=== PATIENT | male | born 1950 | race Caucasian/White ===

== ENCOUNTER 2024-04-17 11:47 | Outpatient (CLI) | payer MEDICARE, MEDICAID, SELFPAY ==
--- NOTE | 2024-04-17 11:53 | CT_ITS ---
WS: [id number] CTA HEAD AND NECK TECHNIQUE: Contrast enhanced CTA of the head and neck with coronal and sagittal reformatted images an d maximum intensity projection (MIP) images. NASCET criteria utilized. CLINICAL INFORMATION: CENTRAL RETINAL ARTERY OCCULLUSION COMPARISON: None. DLP: 1240.[address] scans at [facility] use at least one of these dose optimization techniques: automated e xposure control; mA and/or kV adjustment per patient size (includes targeted exams where dose is matc hed to clinical indication); or iterative reconstruction. 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 Moderate to sev ere stenosis in the LEFT P2 segment. Distal LEFT TROUBLE TRACER vessels appear patent. A few tiny chronic lacunar infarcts in the LEFT caudate and LEFT basal ganglia. Chronic infarct in th e LEFT parasagittal frontal lobe near the vertex. Associated encephalomalacia. Mild small vessel aguayo ges. Mild parenchymal volume loss. Paranasal sinuses and mastoid air cells are well aerated. Normal posterior nasopharynx. RIGHT: RIGHT common carotid artery is patent. Mild calcified atheromatous plaque RIGHT carotid bulb e xtending into the ICA. Less than 50% RIGHT ICA stenosis. RIGHT ICA is patent to the skull base. LEFT: LEFT common carotid artery is patent. Mild calcified atheromatous plaque LEFT carotid bulb. No significant LEFT ICA stenosis. LEFT ICA is patent to the skull base. Moderate to severe RIGHT supraclinoid ICA stenosis which remains patent. Moderate LEFT supraclinoid I CA stenosis. Moderate stenosis RIGHT proximal M1 segment which remains patent. RIGHT dominant vertebral artery. Smaller but patent LEFT vertebral artery. Proximal basilar artery is patent. Normal vascularity to the RIGHT bridge crane operator territory. Moderate to severe focal stenosis LEFT P2 seg ment. Distal LEFT TROUBLE TRACER vessels appear patent. Normal vascularity to the ELADIO and MCA territories bilaterally. CT/CT angio headneck* [id number] IMPRESSION: 1. No significant cervical ICA stenosis bilaterally. 2. 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 Moderate to severe stenosis in the LEFT P2 segment. Distal LEFT TROUBLE TRACER appears pa tent. 3. RIGHT dominant vertebral artery. Smaller but patent LEFT vertebral artery. Mild intracranial vertebral artery calcification. 4. Cavernous carotid calcification with moderate RIGHT and mild LEFT supraclin oid ICA stenosis 5. Moderate stenosis RIGHT proximal M1 segment. MCA vessels remain patent. 6. Basilar artery is patent.
[2024-04-17] MEDS: iohexol 350 mg/mL 500 mL Btl (per mL) IV (12:51)
[2024-04-17 13:00] LABS: Blood Urea Nitrogen 10 mg/dL (8-23)
== END 2024-04-17 11:48 | disposition home or self-care (01) ==
PROVIDERS: Visit Provider Student in an Organized Health Care Education/Training Program
DX: H34.11 Central retinal artery occlusion, right eye (principal); I63.532 Cerebral infarction due to unspecified occlusion or stenosis of left posterior cerebral artery; G93.89 Other specified disorders of brain; R93.89 Abnormal findings on diagnostic imaging of other specified body structures; I65.23 Occlusion and stenosis of bilateral carotid arteries
CPT/HCPCS: 70496; 70498; 82565; 84520

== ENCOUNTER 2024-06-01 14:37 | Inpatient (IN) | payer MEDICARE, MEDICAID, SELFPAY ==
[2024-06-01] VITALS (12 sets, daily range): BP systolic 91–112; BP diastolic 68–76; PULSE 82–96; RESP 15–20; TEMP 36.8–37.2; O2SAT 91–96; BMI 22.8
--- NOTE | 2024-06-01 14:49 | XRR_ITS ---
PROCEDURE INFORMATION: Exam: XR Chest Exam date and time: 06/01/2024 3:04 PM Age: 73 years old Clinical indication: Cough and dyspnea; Additional info: Dyspnea/cough TECHNIQUE: Imaging protocol: Radiologic exam of the chest. Views: 1 view. COMPARISON: CR XR chest 1V portable [id number] 01/29/2024 9:14 AM FINDINGS: Lungs: Unremarkable. No consolidation. Pleural spaces: Unremarkable. No pleural effusion. No pneumothorax. Heart/Mediastinum: Unremarkable. No cardiomegaly. Vasculature: There is unfolding of the thoracic aorta. Bones/joints: Demineralization of the visualized bones, limiting sensitivity for nondisplaced fractures. Mild degenerative disease of bilateral acromioclavicular joints. There are mild degenerative changes of the glenohumeral joint. XR/XR chest 1V portable [id number] IMPRESSION: No acute cardiopulmonary process.
--- NOTE | 2024-06-01 14:49 | ECG_ITS ---
Simio Test Date: 2024-06-01 Pat Name: Bk Jackson Department: Room: Gender: Male Scoreboard Operator: : 1950 Requested By: Willem Ayala Order Number: [id number] Katerina MD: Edwin Mariscal M.D. Measurements Intervals [place] Rate: 94 P: 115 [place]: 242 QRS: 258 QRSD: 155 T: 150 QT: 399 QTc: 499 Interpretive Statements SINUS RHYTHM WITH FIRST DEGREE AV BLOCK WITH OCCASIONAL SUPRAVENTRICULAR PREMATURE COMPLEXES ARM LEADS REVERSED Compared to ECG 01/27/2024 18:04:39 First degree AV block now present No significant change in terms of ST changes Electronically Signed On 06-02-2024 12:34:45 INSTRUCTIONAL TECHNOLOGY FACILITATOR by Edwin Mariscal M.D. [id number] [id number]
--- NOTE | 2024-06-01 14:51 | W.ED.NAVMDI ---
HPI - Nausea/Vomiting/Diarrhea General: Chief complaint: Nausea/Vomiting/Diarrhea Stated complaint: n/v Time Seen by Provider: 06/01/24 14:49 History of Present Illness: 73-year-old male presents emergency room with nausea and vomiting coffee-ground emesis Associated nausea: No Associated symtoms: Denies chest pain, dysuria or nausea Related Data Home Medications ?Medication ?Instructions ?Recorded ?Confirmed Lactobacillus acidophilus 1 cap PO BID 01/29/24 06/01/24 (Acidophilus capsule) acetaminophen 325 mg tablet 650 mg PO Q4H PRN discomfort 01/29/24 06/01/24 aspirin 81 mg tablet,delayed 81 mg PO DAILY 01/29/24 06/01/24 release bisacodyl 10 mg rectal suppository 10 mg AR DAILY 01/29/24 06/01/24 calcium carbonate (Tums) 200 mg PO Q6H 01/29/24 06/01/24 clopidogrel 75 mg tablet 75 mg PO DAILY 01/29/24 06/01/24 insulin glargine 100 unit/mL 15 unit SUBCUT DAILY 01/29/24 06/01/24 subcutaneous solution (Lantus U-100 Insulin) insulin lispro 100 unit/mL See Rx Instructions .Route .COMPLEX 01/29/24 06/01/24 subcutaneous pen (Humalog KwikPen (U-100) Insulin) magnesium hydroxide 400 mg/5 mL 30 ml PO BID PRN discomfort 01/29/24 06/01/24 oral suspension (Milk of Magnesia) menthol 0.44 %-zinc oxide 20.6 % 1 applic topical BID 01/29/24 06/01/24 topical ointment (Moisture Barrier Ointment) multivitamin 1 tab PO DAILY 01/29/24 06/01/24 ondansetron 4 mg disintegrating 4 mg PO Q8H PRN Nausea And Vomiting 01/29/24 06/01/24 tablet pantoprazole 40 mg tablet,delayed 40 mg PO BID 01/29/24 06/01/24 release protein supplement 30 ea PO DAILY 01/29/24 06/01/24 aluminum-mag hydroxide-simethicone 30 ml PO Q2H PRN Constipation 06/01/24 06/01/24 400 mg-400 mg-40 mg/5 mL oral susp atropine 1 % eye drops 1 drp ophthalmic (eye) BID 06/01/24 06/01/24 bisacodyl 5 mg tablet 20 mg PO DAILY 06/01/24 06/01/24 brimonidine 0.2 % eye drops 1 drp ophthalmic (eye) BID 06/01/24 06/01/24 guaifenesin 100 mg/5 mL oral liquid 200 mg PO Q6H PRN Cough 06/01/24 06/01/24 ketotifen fumarate 0.025 % (0.035 1 drp ophthalmic (eye) DAILY 06/01/24 06/01/24 %) eye drops (Allergy Eye (ketotifen)) loratadine 10 mg tablet (Claritin) 10 mg PO Q12H 06/01/24 06/01/24 polyethylene glycol 3350 17 4 g PO DAILY 06/01/24 06/01/24 gram/dose oral powder polyvinyl alcohol 1.4 % eye drops 2 drp ophthalmic (eye) Q6H 06/01/24 06/01/24 prednisolone acetate 1 % eye 1 drp ophthalmic (eye) BID 06/01/24 06/01/24 drops,suspension Previous Rx's ?Medication ?Instructions ?Recorded tamsulosin 0.4 mg capsule 0.4 mg PO DAILY #30 caps 02/01/24 amoxicillin 875 mg-potassium 1 tab PO BID 5 days #10 tabs 06/05/24 clavulanate 125 mg tablet atorvastatin 40 mg tablet 40 mg PO BEDTIME 30 days #30 tabs 06/05/24 Allergies Allergy/AdvReac Type Severity Reaction Status Date / Time No Known Allergies Allergy Verified 01/27/24 18:12 Review of Systems Const: Denies: fever(s) or chills Card: Denies: chest pain Resp: Denies: dyspnea GI: Reports: vomiting; Denies: abdominal pain or nausea : Denies: dysuria, urinary frequency or urinary urgency Musc: Denies: neck pain or back pain Skin/Breast: Denies: rash PFSH ED PFSH: Medical History (Updated 06/06/24 @ 17:59 by Willem Randhawa DO) Pressure ulcer of right ankle, stage 2 Non-pressure chronic ulcer of other part of left foot with fat layer exposed Type 2 diabetes mellitus with foot ulcer Upper gastrointestinal hemorrhage Anemia Overactive bladder Hypertension Coronary artery disease Paroxysmal atrial fibrillation Esophageal bleeding Type 2 diabetes mellitus Alzheimer's dementia Surgical History (Updated 06/04/24 @ 16:07 by RADHA Dutton) S/P coronary angiogram History of transmetatarsal amputation of foot Family History Denies family history of Bleeding disorder Social History Smoking and tobacco/nicotine status: never used tobacco/nicotine Alcohol intake: never Substance/Drug Use: never Physical Exam Const: GENERAL APPEARANCE: cooperative ORIENTATION/CONSCIOUSNESS: Yes awake, Yes oriented to person, Yes oriented to place and Yes oriented to time HENMT: COMMON NORMALS: normocephalic, atraumatic and hearing grossly normal bilaterally HEAD & SCALP: normocephalic and atraumatic Resp: COMMON NORMALS: normal respiratory effort, No retractions, No use of accessory muscles and clear to auscultation bilaterally AUSCULTATION: clear to auscultation bilaterally Cardio: COMMON NORMALS: regular rate, regular rhythm and No murmurs present (Cardio) RATE: regular rate RHYTHM: regular rhythm GI: COMMON NORMALS: Soft to palpation and No hepatosplenomegaly present AUSCULTATION: Yes normoactive bowel sounds PALPATION: Yes Soft to palpation, No Tenderness to palpation present (GI), No Guarding due to palpation present (GI) and Yes No hepatosplenomegaly present Extremity: COMMON NORMALS: normal to inspection, capillary refill normal, no clubbing, cyanosis or edema, no calf tenderness and no pedal edema Neuro: SENSORIUM/ORIENTATION: Yes oriented to person, Yes oriented to place and Yes oriented to time Skin: COMMON NORMALS: no rashes or lesions noted GENERAL SKIN EXAM: no rashes or lesions noted Course Vital Signs: Vital signs: Vital Signs Temperature 98.1 F 06/05/24 11:35 Pulse Rate 96 06/05/24 11:35 Respiratory Rate 21 H 06/05/24 11:35 Blood Pressure 108/65 06/05/24 11:35 Pulse Oximetry 93 06/05/24 11:35 Oxygen Delivery Me thod Room Air 06/05/24 11:35 Oxygen Flow Rate 2 06/05/24 02:57 MDM - Nausea/Vomiting/Diarrhea Medical Decision Making Upper GI bleed. Patient CPK also elevated. We added troponins and it came back elevated his EKG did not show any acute changes he is not had any chest pain discussed with hospitalist orders written will consult cardiology. Had been on Eliquis in the past. Due to upper GI bleed he previous GI bleed records are being retrieved. Medical Records I reviewed the patient's medical records. Lab Data I reviewed the patient's lab results. 06/04/24 02:49 06/04/24 02:49 Radiology Impressions Chest X-Ray 06/01/24 14:49 IMPRESSION: No acute cardiopulmonary process. Chest/Abdomen/Pelvis CT 06/02/24 11:13 IMPRESSION: Findings which likely represent CHF/pulmonary edema. Superimposed infection is difficult to exclude. IMPRESSION: 1. Findings which can be seen in stercoral colitis. Correlate clinically. Difficult to exclude gastrointestinal bleed with the noncontrasted examination. 2. Hydropic gallbladder, consider right upper quadrant ultrasound for further assessment. 3. Findings of which can be seen in cystitis/upper urinary tract infection, correlate clinically. 4. Prominent left common iliac lymph nodes, correlate with left lower extremity pathology. Gallbladder Ultrasound 06/02/24 12:50 IMPRESSION: No acute sonographic findings. Laboratory Results WBC 17.08 10^3/uL (3.29-11.43) H 06/01/24 15:08 RBC 4.53 10^6/uL (3.85-5.65) 06/01/24 15:08 Hgb 10.90 g/dL (11.27-16.99) L 06/01/24 15:08 Hct 36.1 % (37-53) L 06/01/24 15:08 MCV 79.7 fl (82-101) L 06/01/24 15:08 MCH 24.1 pg (27-33) L 06/01/24 15:08 MCHC 30.2 g/dL (30-55) 06/01/24 15:08 RDW 17.0 % (12.1-15.1) H 06/01/24 15:08 Plt Count 253 10^3/cmm (157-399) 06/01/24 15:08 MPV 11.2 fL (7.4-10.4) H 06/01/24 15:08 Neut % (Auto) 87.0 % 06/01/24 15:08 Lymph % (Auto) 7.5 % 06/01/24 15:08 [place] % (Auto) 4.9 % 06/01/24 15:08 Eos % (Auto) 0.0 % 06/01/24 15:08 Baso % (Auto) 0.2 % 06/01/24 15:08 Neut # (Auto) 14.87 10^3/uL (1.8-7.7) H 06/01/24 15:08 Lymph # (Auto) 1.3 10^3/uL (0.8-4.8) 06/01/24 15:08 [place] # (Auto) 0.8 10^3/uL (0.2-0.9) 06/01/24 15:08 Eos # (Auto) 0.0 10^3/uL (0.0-0.8) 06/01/24 15:08 Baso # (Auto) 0.0 10^3/uL (0.0-0.1) 06/01/24 15:08 Nucleated RBC % (auto) 0 % 06/01/24 15:08 Nucleated RBCs # 0.0 /100WBC 06/01/24 15:08 Sodium 136 mmol/L (136-145) 06/01/24 15:08 Potassium 3.5 mmol/L (3.5-5.1) 06/01/24 15:08 Chloride 102 mmol/L (98-107) 06/01/24 15:08 Carbon Dioxide 22 mmol/L (22-29) 06/01/24 15:08 Anion Gap 15.5 (5-19) 06/01/24 15:08 BUN 26 mg/dL (8-23) H 06/01/24 15:08 Creatinine 0.7 mg/dL (0.7-1.2) 06/01/24 15:08 GFR Calculation Not Reportable 06/01/24 15:08 Glucose 241 mg/dL (65-115) H 06/01/24 15:08 Calculated Osmolality 295 mOsm/kg (285-295) 06/01/24 15:08 Lactic Acid Cancelled 06/01/24 16:00 Calcium 9.0 mg/dL (8.5-10.5) 06/01/24 15:08 Total Bilirubin 0.4 mg/dL (0.15-1.2) 06/01/24 15:08 AST 104 U/L (0-40) H 06/01/24 15:08 ALT 19 U/L (0-41) 06/01/24 15:08 Alkaline Phosphatase 95 U/L (40-130) 06/01/24 15:08 Creatine Kinase 1398 U/L (39-308) H* 06/01/24 15:08 Troponin T Baseline 910 ng/L (0-15) H* 06/01/24 15:08 NT-Pro-B Natriuret Pep 6869 pg/mL (0-125) H 06/01/24 15:08 Total Protein 7.4 g/dL (6.6-8.7) 06/01/24 15:08 Albumin 3.5 g/dL (3.5-5.2) 06/01/24 15:08 Globulin 3.9 g/dL (1.3-4.6) 06/01/24 15:08 Lipase 7 U/L (13-60) L 06/01/24 15:08 Urine Color Dark yellow (Yellow) A 06/01/24 15: Urine Appearance Clear (CLEAR) 06/01/24 15: Urine pH 5.0 (5-7) 06/01/24 15: Ur Specific [place] 1.022 (1.005-1.030) 06/01/24 15: Urine Protein 1+ (Negative) A 06/01/24 15:29 Urine Glucose (UA) 1+ (Normal) H 06/01/24 15:29 Urine Ketones Trace (Negative) 06/01/24 15: Urine Blood Negative (Negative) 06/01/24 15: Urine Nitrate Negative (Negative) 06/01/24 15:29 Urine Bilirubin 1+ (Negative) H 06/01/24 15: Urine Urobilinogen 1.0 mg/dL (Negative) 06/01/24 15:29 Ur Leukocyte Esterase Negative (Negative) 06/01/24 15:29 Urine RBC 0-4 /hpf (0-2) H 06/01/24 15:29 Urine WBC 0-4 /hpf (0-5) H 06/01/24 15:29 Ur Squamous Epith Cells 0-4 /hpf (0-5) H 06/01/24 15:29 Amorphous Sediment Not Reportable 06/01/24 15:29 Urine Bacteria 1+ /hpf (NONE) H 06/01/24 15:29 Hyaline Casts 15-25 /lpf H 06/01/24 15:29 Urine Mucus 1+ /hpf 06/01/24 15:29 Influenza A (PCR) Negative (Negative) 06/01/24 15:45 Influenza Type B (PCR) Negative (Negative) 06/01/24 15:45 RSV (PCR) Negative (Negative) 06/01/24 15:45 SARS-CoV-2 (PCR) Negative (Negative) 06/01/24 15:45 All radiology interpretation(s) finalized by discharge Discharge Plan Discharge Patient Disposition: Admitted As Inpatient Admit Provider: Melissa Park Clinical Impression: GIB (gastrointestinal bleeding), Alzheimer's dementia, Anemia, Constipation, Paroxysmal atrial fibrillation, Coronary artery disease Condition: Stable Discharge Diet: GI Soft Discharge Activity: Resume usual activity Coding Level of Care Code ED Podiatrist Orthopedic for Sb Saldana
[2024-06-01 15:17] LABS: Basophils % 0.2 %; Hematocrit 36.1 % (37-53); Lymphocytes # 1.3 10^3/uL (0.8-4.8); Lymphocytes % 7.5 %; Mean Corpuscular HGB Conc 30.2 g/dL (30-55); Mean Corpuscular Hemoglobin 24.1 pg (27-33); Mean Corpuscular Volume 79.7 fl (82-101); Mean Platelet Volume 11.2 fL (7.4-10.4); Monocytes # 0.8 10^3/uL (0.2-0.9); Monocytes % 4.9 %; Neutrophils # 14.87 10^3/uL (1.8-7.7); Nucleated Red Blood Cells % 0 %; Platelet Count 253 10^3/cmm (157-399); Red Blood Count 4.53 10^6/uL (3.85-5.65); White Blood Count 17.08 10^3/uL (3.29-11.43)
[2024-06-01] MEDS: ondansetron 2 mg/ML SDV 2 mL 4 MG IVP (15:26)
[2024-06-01 15:29] LABS: Alanine Aminotransferase 19 U/L (0-41); Albumin Level 3.5 g/dL (3.5-5.2); Alkaline Phosphatase 95 U/L (40-130); Anion Gap 15.5 (5-19); Aspartate Amino Transferase 104 U/L (0-40); Blood Urea Nitrogen 26 mg/dL (8-23); Carbon Dioxide 22 mmol/L (22-29); Chloride 102 mmol/L (98-107); Globulin 3.9 g/dL (1.3-4.6); Glucose 241 mg/dL (65-115); Osmolality Calculated 295 mOsm/kg (285-295); Potassium 3.5 mmol/L (3.5-5.1); Sodium 136 mmol/L (136-145); Total Bilirubin 0.4 mg/dL (0.15-1.2); Total Protein 7.4 g/dL (6.6-8.7)
[2024-06-01 15:36] LABS: Bilirubin Urine 1+ (Negative); Blood Urine Negative (Negative); Glucose Urine UA 1+ (Normal); Ketones Urine Trace (Negative); Leukocyte Esterase Urine Negative (Negative); Nitrate Urine Negative (Negative); Protein Urine 1+ (Negative); Specific Gravity, Urine 1.022 (1.005-1.030); Urine Appearance Clear (CLEAR); Urine Color Dark Yellow (Yellow)
[2024-06-01 15:45] LABS: Add Urine Microscopic? YES; Bacteria Urine 1+ /hpf; Hyaline Casts Urine 15-25 /lpf; Mucus Urine 1+ /hpf; RBC Urine 0-4 /hpf (0-2); Squamous Epithelial Cell Urine 0-4 /hpf (0-5); WBC Urine 0-4 /hpf (0-5)
[2024-06-01 15:59] LABS: Creatine Phosphokinase 1398 U/L (39-308)
--- NOTE | 2024-06-01 16:55 | ECG_ITS ---
Vator Test Date: 2024-06-01 Pat Name: Bk Jackson Department: Room: Gender: Male Supervisor Electron Tube Processing: : 1950 Requested By: Willem Ayala Order Number: [id number] Katerina MD: Edwin Mariscal M.D. Measurements Intervals [place] Rate: 91 P: 82 [place]: 184 QRS: -84 QRSD: 151 T: 65 QT: 410 QTc: 506 Interpretive Statements SINUS RHYTHM RIGHT BUNDLE BRANCH BLOCK INFERIOR MYOCARDIAL INFARCTION , PROBABLY OLD ANTEROSEPTAL MYOCARDIAL INFARCTION , PROBABLY RECENT Compared to ECG 06/01/2024 15:07:25 Myocardial infarct finding now present Electronically Signed On 06-02-2024 12:16:18 EMERGENCY ROOM NURSE by Edwin Mariscal M.D. [email or web address] [id number]
[2024-06-01 16:56] LABS: Influenza A NEGATIVE (Negative); Influenza B NEGATIVE (Negative); Respiratory Syncytial Virus Ce NEGATIVE (Negative); SARS-CoV-2 PCR NEGATIVE (Negative)
[2024-06-01 17:21] LABS: Lipase 7 U/L (13-60)
[2024-06-01 17:23] LABS: Troponin(5th) Baseline 910 ng/L (0-15)
[2024-06-01] MEDS: pantoprazole 40 mg SDV 80 MG IVP (17:33)
[2024-06-01 18:18] LABS: Lactic Sepsis W/Reflex 2.1 mmol/L (0.5-2.2)
[2024-06-01 18:19] LABS: Reflex Lactate Order REFLEX LACTIC ORDERD
[2024-06-01 18:42] LABS: Basophils % 0.3 %; Eosinophils % 0.3 %; Hematocrit 32.5 % (37-53); Lymphocytes # 1.7 10^3/uL (0.8-4.8); Lymphocytes % 11.2 %; Mean Corpuscular HGB Conc 30.8 g/dL (30-55); Mean Corpuscular Hemoglobin 24.6 pg (27-33); Mean Corpuscular Volume 79.9 fl (82-101); Monocytes # 0.9 10^3/uL (0.2-0.9); Monocytes % 5.7 %; Neutrophils # 12.45 10^3/uL (1.8-7.7); Neutrophils % 82.2 %; Nucleated Red Blood Cells % 0 %; Platelet Count 240 10^3/cmm (157-399); Red Blood Count 4.07 10^6/uL (3.85-5.65); White Blood Count 15.12 10^3/uL (3.29-11.43)
[2024-06-01 18:59] LABS: Lactic Acid level (Lactate) 1.4 mmol/L (0.5-2.2)
[2024-06-01 19:12] LABS: NT Pro B Type Natriuretic Pept 6869 pg/mL (0-125)
--- NOTE | 2024-06-01 19:48 | ECG_ITS ---
Kodable Test Date: 2024-06-01 Pat Name: Bk Jackson Department: Room: 112 Gender: Male Port Engineer: : 1950 Requested By: Melissa Park Order Number: [id number] Borges MD: Edwin Mariscal M.D. Measurements Intervals [place] Rate: 90 P: 50 [place]: 200 QRS: 267 QRSD: 158 T: 28 QT: 420 QTc: 515 Interpretive Statements SINUS RHYTHM WITH OCCASIONAL ECTOPIC PREMATURE COMPLEXES RIGHT AXIS DEVIATION RIGHT BUNDLE BRANCH BLOCK INFERIOR MYOCARDIAL INFARCTION , PROBABLY OLD ANTEROSEPTAL MYOCARDIAL INFARCTION , PROBABLY RECENT Compared to ECG 06/01/2024 17:08:04 No significant change Electronically Signed On 06-02-2024 12:44:25 FACE CLEANER by Edwin Mariscal M.D. [id number] [id number]
--- NOTE | 2024-06-01 19:59 | PM.HP ---
Providers/Chief Complaint Admitting Physician: Melissa Park MD Chief Complaint: n/v History of Present Illness Bk Jackson is a 73 year old male significant for Alzheimer's disease, coronary artery disease, hypertension, paroxysmal atrial fibrillation (off eliquis) , anemia, GI bleed, overactive bladder, and type 2 diabetes mellitus who presents to the emergency department from nursing facility with hematemesis Patient at baseline is AOx4, active, [facility] a walker [facility] the [facility], has been taking his aspirin and Plavix consistently, recently had eye surgery, presented today with chief complaint of couple episode of blood in vomiting, he is not endorsing any chest pain shortness of breath fever diarrhea syncopal event or seizure. EKG showing nonspecific changes related to right bundle branch block, troponin 900 CPK is also high at 1398 Review of records revealed patient was treated for GI bleed at [facility] as well. Records obtained showed EGD on 01/19/24 revealing large blood clot in the esophagus with active oozing of blood from the mid to distal esophagus at 28 cm from incisors treated with 3 mL epinephrine injection and hemostatic clip Review of Systems Const: Denies: fever(s) Eyes: Denies: change in vision ENMT: Denies: throat pain Card: Denies: chest pain Resp: Denies: dyspnea GI: Reports: nausea and vomiting : Denies: flank pain Musc: Denies: neck pain Medications/Allergies Home Medications ?Medication ?Instructions ?Recorded ?Confirmed ?Last Taken ?Type Lactobacillus acidophilus 1 cap PO BID 01/29/24 06/01/24 Unknown History (Acidophilus capsule) acetaminophen 325 mg tablet 650 mg PO Q4H PRN discomfort 01/29/24 06/01/24 Unknown History aspirin 81 mg tablet,delayed 81 mg PO DAILY 01/29/24 06/01/24 Unknown History release bisacodyl 10 mg rectal suppository 10 mg OK DAILY 01/29/24 06/01/24 Unknown History calcium carbonate (Tums) 200 mg PO Q6H 01/29/24 06/01/24 Unknown History clopidogrel 75 mg tablet 75 mg PO DAILY 01/29/24 06/01/24 Unknown History insulin glargine 100 unit/mL 15 unit SUBCUT DAILY 01/29/24 06/01/24 Unknown History subcutaneous solution (Lantus U-100 Insulin) insulin lispro 100 unit/mL See Rx Instructions .Route .COMPLEX 01/29/24 06/01/24 Unknown History subcutaneous pen (Humalog KwikPen (U-100) Insulin) magnesium hydroxide 400 mg/5 mL 30 ml PO BID PRN discomfort 01/29/24 06/01/24 Unknown History oral suspension (Milk of Magnesia) menthol 0.44 %-zinc oxide 20.6 % 1 applic topical BID 01/29/24 06/01/24 Unknown History topical ointment (Moisture Barrier Ointment) multivitamin 1 tab PO DAILY 01/29/24 06/01/24 Unknown History ondansetron 4 mg disintegrating 4 mg PO Q8H PRN Nausea And Vomiting 01/29/24 06/01/24 Unknown History tablet pantoprazole 40 mg tablet,delayed 40 mg PO BID 01/29/24 06/01/24 Unknown History release protein supplement 30 ea PO DAILY 01/29/24 06/01/24 Unknown History tamsulosin 0.4 mg capsule 0.4 mg PO DAILY #30 caps 02/01/24 06/01/24 Unknown Rx aluminum-mag hydroxide-simethicone 30 ml PO Q2H PRN Constipation 06/01/24 06/01/24 Unknown History 400 mg-400 mg-40 mg/5 mL oral susp atropine 1 % eye drops 1 drp ophthalmic (eye) BID 06/01/24 06/01/24 Unknown History bisacodyl 5 mg tablet 20 mg PO DAILY 06/01/24 06/01/24 Unknown History brimonidine 0.2 % eye drops 1 drp ophthalmic (eye) BID 06/01/24 06/01/24 Unknown History guaifenesin 100 mg/5 mL oral liquid 200 mg PO Q6H PRN Cough 06/01/24 06/01/24 Unknown History ketotifen fumarate 0.025 % (0.035 1 drp ophthalmic (eye) DAILY 06/01/24 06/01/24 Unknown History %) eye drops (Allergy Eye (ketotifen)) loratadine 10 mg tablet (Claritin) 10 mg PO Q12H 06/01/24 06/01/24 Unknown History polyethylene glycol 3350 17 4 g PO DAILY 06/01/24 06/01/24 Unknown History gram/dose oral powder polyvinyl alcohol 1.4 % eye drops 2 drp ophthalmic (eye) Q6H 06/01/24 06/01/24 Unknown History prednisolone acetate 1 % eye 1 drp ophthalmic (eye) BID 06/01/24 06/01/24 Unknown History drops,suspension Allergies Allergy/AdvReac Type Severity Reaction Status Date / Time No Known Allergies Allergy Verified 01/27/24 18:12 PFSH Acute PFSH: Medical History Upper gastrointestinal hemorrhage Anemia Overactive bladder Hypertension Coronary artery disease Paroxysmal atrial fibrillation Esophageal bleeding Type 2 diabetes mellitus Alzheimer's dementia Surgical History History of transmetatarsal amputation of foot Family History Denies family history of Bleeding disorder Social History Smoking and tobacco/nicotine status: never used tobacco/nicotine Alcohol intake: never Substance/Drug Use: never Vitals/I&O/Wt Last Vital Signs Temp 98.9 F 06/01/24 19:48 Pulse 93 06/01/24 19:48 Resp 16 06/01/24 19:48 BP 100/69 06/01/24 19:27 Pulse Ox 91 06/01/24 19:48 O2 Del Method Room Air 06/01/24 19:48 Weight last 48 hrs Weight 86.183 kg Physical Exam Narrative: No active chest pain Currently in supine Pale complexion no Acute distress Hemodynamic stable Currently on room air AOx4 GCS 15 no active focal deficit S1, S2 Lower extremity mild edema Lower extremity with bruises left leg erythema without signs of septic joint Patient able to follow commands Very pleasant cooperative Data 06/01/24 20:12 06/01/24 15:08 Micro: Microbiology 06/01/24 16:10 Occult Blood (FIT) - Final Stool 06/01/24 16:12 Blood Culture - Preliminary Blood SPECIMEN COLLECTED 06/01/24 16:10 Blood Culture - Preliminary Blood SPECIMEN COLLECTED A&P Assessment and plan (1) Anemia: (2) Alzheimer's dementia: (3) Type 2 diabetes mellitus: (4) Paroxysmal atrial fibrillation: (5) Coronary artery disease: (6) Hypertension: (7) Elevated troponin: Plan Hematemesis Recurrent episodes Stop aspirin and Plavix No active signs of OK on EKG No active chest pain Will call to neurosurgery for EGD in the morning However previous EGD was done rather recently Continue Protonix Patient to stay n.p.o. Start IV fluids D5 normal saline because he is diabetic Patient hemodynamically stable Elevated troponin: Monitor troponin serial EKGs no active chest pain, Hold off on aspirin Plavix or heparin for now secondary to recurrent episode of hematemesis ER has consulted cardiology: however at this point stabilization of GI bleed will take precedence and then if any intervention is needed we will follow-up with cardiology recommendations Alzheimer's dementia: No acute decompensation AOx4 Type II diabetic: Accu-Cheks every 4 hours during n.p.o. status Currently on D5 normal saline Elevated CPK: Continue IV fluids Monitor CPK Recently had eye surgery Patient not endorsing any recent falls A-fib without RVR Not a candidate to be on Eliquis Eliquis has been discontinued DNR/DNI as per the records N.p.o. DVT prophylaxis: SCDs PDMP PDMP Reviewed: Not Reviewed Attestations Medical Necessity Statement*: Anticipating more than 2 midnights for evaluation and treatment of upper GI bleed and then may need further cardiology evaluation Diagnoses Anemia D64.9 Alzheimer's dementia G30.9; F02.80 Type 2 diabetes mellitus E11.9 Paroxysmal atrial fibrillation I48.0 Coronary artery disease I25.10 Hypertension I10 Elevated troponin R79.89
[2024-06-01 20:20] LABS: Glucose Point of Care 211 mg/dL (70-110)
[2024-06-01 20:24] LABS: Hematocrit 33.9 % (37-53)
[2024-06-01] MEDS: dextrose 5%-sod chloride 0.9% 1,000 ML 30 ML IV (20:41)
[2024-06-01] MEDS: pantoprazole 40 mg SDV IVP (20:45)
[2024-06-01 20:48] LABS: Troponin 5 6HR 1155 ng/L (0-15); Troponin 5 6HR Delta 245 ng/L (0-12)
[2024-06-01 20:50] LABS: Procalcitonin 1.17 ng/mL (0-0.5)
[2024-06-01 23:09] LABS: Hematocrit 30.7 % (37-53)
[2024-06-02] VITALS (21 sets, daily range): BP systolic 88–155; BP diastolic 55–75; PULSE 76–96; RESP 16–28; TEMP 36.4–37.1; O2SAT 90–99; BMI 23.7
[2024-06-02 00:13] LABS: Glucose Point of Care 193 mg/dL (70-110)
--- NOTE | 2024-06-02 01:56 | ECG_ITS ---
Purple Binder Test Date: 2024-06-02 Pat Name: Bk Jackson Department: Room: 112 Gender: Male Automobile Sales Consultant: : 1950 Requested By: Melissa Park Order Number: [id number] Borges MD: Edwin Mariscal M.D. Measurements Intervals [place] Rate: 88 P: 70 [place]: 204 QRS: -87 QRSD: 157 T: 30 QT: 426 QTc: 516 Interpretive Statements SINUS RHYTHM WITH OCCASIONAL VENTRICULAR PREMATURE COMPLEXES RIGHT BUNDLE BRANCH BLOCK [ INFERIOR MYOCARDIAL INFARCTION , PROBABLY OLD ANTEROSEPTAL MYOCARDIAL INFARCTION , PROBABLY RECENT Compared to ECG 06/01/2024 20:46:51 No significant change Electronically Signed On 06-02-2024 12:42:49 SCIENCE CONSULTANT by Edwin Mariscal M.D. [id number]
[2024-06-02 06:22] LABS: Glucose Point of Care 194 mg/dL (70-110)
[2024-06-02 06:54] LABS: Basophils % 0.3 %; Eosinophils % 0.1 %; Hematocrit 38.1 % (37-53); Lymphocytes # 1.3 10^3/uL (0.8-4.8); Mean Corpuscular HGB Conc 30.2 g/dL (30-55); Mean Corpuscular Volume 82.8 fl (82-101); Mean Platelet Volume 11.4 fL (7.4-10.4); Monocytes # 0.8 10^3/uL (0.2-0.9); Monocytes % 5.9 %; Neutrophils % 84.3 %; Nucleated Red Blood Cells % 0 %; Platelet Count 209 10^3/cmm (157-399); Red Cell Distribution Width 17.3 % (12.1-15.1); White Blood Count 13.99 10^3/uL (3.29-11.43)
[2024-06-02 07:16] LABS: Anion Gap 14.6 (5-19); Blood Urea Nitrogen 22 mg/dL (8-23); Calcium 8.6 mg/dL (8.5-10.5); Carbon Dioxide 22 mmol/L (22-29); Chloride 102 mmol/L (98-107); Glucose 207 mg/dL (65-115); Magnesium 1.8 mg/dL (1.7-2.3); Osmolality Calculated 289 mOsm/kg (285-295); Potassium 3.6 mmol/L (3.5-5.1); Sodium 135 mmol/L (136-145)
[2024-06-02 07:18] LABS: Creatinine Clr Calc Pharmacy 85.8233
[2024-06-02 07:54] LABS: Creatine Phosphokinase 1027 U/L (39-308)
[2024-06-02] MEDS: pantoprazole 40 mg SDV IVP ×2 (08:36→20:40)
--- NOTE | 2024-06-02 09:24 | ANES.PREANE2 ---
Pre-Anesthetic Assessment Height/Weight: Height 5 ft 10 in Weight 165 lb 4 oz Temp Pulse Resp BP Pulse Ox O2 Del Method O2 Flow Rate 97.9 F 86 22 H 115/75 96 Nasal Cannula 2 06/02/24 07:10 06/02/24 07:10 06/02/24 07:10 06/02/24 07:10 06/02/24 07:10 06/02/24 07:10 06/02/24 03:41 Preop Diagnosis: Hematic emesis Operation Date: 06/02/24 11:15 Proposed Procedures p EGD(Not Applicable) - Jay Horn MD Was Beta Gayatri taken within 24 hours: N/A Was Clonidine taken within 24 hours: N/A Social Unknown, patient is confused at this time Exam alert Oriented to self On 3 L O2. Airway Submandibular: within normal limits Cervical ROM: within normal limits Mallampati: Class III Comments: Comments: Edentulous Anesthetic Plan ASA status: 4E Anesthesia: MAC Other: Patient initially admitted 06/01/2024 with hematic emesis. Concern for active NSTEMI, troponins elevated. CPK has trended down since yesterday Spoke with patient's daughter Della on the phone No prior issues with anesthesia NPO since yesterday evening History of insulin-dependent DM On 3 L O2 currently CAD history Hypertension Paroxysmal A-fib. Patient needs anticoagulation but is not a good candidate until hemataemesis is controlled. EKG showing RBBB and concerns for TN Spoke with Dr. Mariscal, cardiology, on the phone. He confirms patient did have an TN. Echo this morning showing EF 40-45%. He states that patient is not a candidate for any anticoagulation or cardiac procedure at this time due to the hematic emesis. Patient is high risk for a cardiac event IntraOp. Spoke with patient's daughter about this. She is aware of the risks and would like to proceed at this time. She states she was also unaware that he was a DNR/DNI. She is okay with foregoing this during the perioperative period. Plan for MAC anesthetic Medications/Allergies Home Medications ?Medication ?Instructions ?Recorded ?Confirmed ?Last Taken ?Type Lactobacillus acidophilus 1 cap PO BID 01/29/24 06/01/24 Unknown History (Acidophilus capsule) acetaminophen 325 mg tablet 650 mg PO Q4H PRN discomfort 01/29/24 06/01/24 Unknown History aspirin 81 mg tablet,delayed 81 mg PO DAILY 01/29/24 06/01/24 Unknown History release bisacodyl 10 mg rectal suppository 10 mg DC DAILY 01/29/24 06/01/24 Unknown History calcium carbonate (Tums) 200 mg PO Q6H 01/29/24 06/01/24 Unknown History clopidogrel 75 mg tablet 75 mg PO DAILY 01/29/24 06/01/24 Unknown History insulin glargine 100 unit/mL 15 unit SUBCUT DAILY 01/29/24 06/01/24 Unknown History subcutaneous solution (Lantus U-100 Insulin) insulin lispro 100 unit/mL See Rx Instructions .Route .COMPLEX 01/29/24 06/01/24 Unknown History subcutaneous pen (Humalog KwikPen (U-100) Insulin) magnesium hydroxide 400 mg/5 mL 30 ml PO BID PRN discomfort 01/29/24 06/01/24 Unknown History oral suspension (Milk of Magnesia) menthol 0.44 %-zinc oxide 20.6 % 1 applic topical BID 01/29/24 06/01/24 Unknown History topical ointment (Moisture Barrier Ointment) multivitamin 1 tab PO DAILY 01/29/24 06/01/24 Unknown History ondansetron 4 mg disintegrating 4 mg PO Q8H PRN Nausea And Vomiting 01/29/24 06/01/24 Unknown History tablet pantoprazole 40 mg tablet,delayed 40 mg PO BID 01/29/24 06/01/24 Unknown History release protein supplement 30 ea PO DAILY 01/29/24 06/01/24 Unknown History tamsulosin 0.4 mg capsule 0.4 mg PO DAILY #30 caps 02/01/24 06/01/24 Unknown Rx aluminum-mag hydroxide-simethicone 30 ml PO Q2H PRN Constipation 06/01/24 06/01/24 Unknown History 400 mg-400 mg-40 mg/5 mL oral susp atropine 1 % eye drops 1 drp ophthalmic (eye) BID 06/01/24 06/01/24 Unknown History bisacodyl 5 mg tablet 20 mg PO DAILY 06/01/24 06/01/24 Unknown History brimonidine 0.2 % eye drops 1 drp ophthalmic (eye) BID 06/01/24 06/01/24 Unknown History guaifenesin 100 mg/5 mL oral liquid 200 mg PO Q6H PRN Cough 06/01/24 06/01/24 Unknown History ketotifen fumarate 0.025 % (0.035 1 drp ophthalmic (eye) DAILY 06/01/24 06/01/24 Unknown History %) eye drops (Allergy Eye (ketotifen)) loratadine 10 mg tablet (Claritin) 10 mg PO Q12H 06/01/24 06/01/24 Unknown History polyethylene glycol 3350 17 4 g PO DAILY 06/01/24 06/01/24 Unknown History gram/dose oral powder polyvinyl alcohol 1.4 % eye drops 2 drp ophthalmic (eye) Q6H 06/01/24 06/01/24 Unknown History prednisolone acetate 1 % eye 1 drp ophthalmic (eye) BID 06/01/24 06/01/24 Unknown History drops,suspension Allergies Allergy/AdvReac Type Severity Reaction Status Date / Time No Known Allergies Allergy Verified 01/27/24 18:12 Current Medications Generic Name Dose Route Start Last Admin Trade Name Freq PRN Reason Stop Dose Admin Dextrose/Sodium Chloride 1,000 mls @ 30 mls/hr 06/01/24 20:30 06/01/24 20:41 Dextrose 5%-Sod Chloride 0.9% IV 30 mls/hr .Q24H RAMIRO Administration Insulin Human Lispro 0 unit 06/02/24 08:00 06/02/24 08:27 Insulin Lispro 100 Unit/1 Ml SUBCUT Not Given TIDWM RAMIRO Protocol Pantoprazole Sodium 40 mg 06/01/24 19:48 06/02/24 08:36 Pantoprazole 40 Mg Sdv IVP 40 mg Q12H RAMIRO Administration Tamsulosin HCl 0.4 mg 06/02/24 09:00 06/02/24 08:28 Tamsulosin 0.4 Mg Capsule PO Not Given DAILY RAMIRO PFSH Anesthesia Medical History Upper gastrointestinal hemorrhage Anemia Overactive bladder Hypertension Coronary artery disease Paroxysmal atrial fibrillation Esophageal bleeding Type 2 diabetes mellitus Alzheimer's dementia Surgical History History of transmetatarsal amputation of foot Family History Denies family history of Bleeding disorder Social History Smoking and tobacco/nicotine status: never used tobacco/nicotine Alcohol intake: never Substance/Drug Use: never Data Anesthesia 06/02/24 06:48 06/02/24 06:48 Short CBC 06/01/24 06/01/24 06/01/24 Range/Units 15:08 18:34 20:12 WBC 17.08 H 15.12 H (3.29-11.43) 10^3/uL Hgb 10.90 L 10.00 L 10.20 L (11.27-16.99) g/dL Hct 36.1 L 32.5 L 33.9 L (37-53) % MCV 79.7 L 79.9 L (82-101) fl Plt Count 253 240 (157-399) 10^3/cmm Neut % (Auto) 87.0 82.2 % Neut # (Auto) 14.87 H 12.45 H (1.8-7.7) 10^3/uL 06/01/24 06/02/24 Range/Units 23:00 06:48 WBC 13.99 H (3.29-11.43) 10^3/uL Hgb 9.40 L 11.50 (11.27-16.99) g/dL Hct 30.7 L 38.1 (37-53) % MCV 82.8 (82-101) fl Plt Count 209 (157-399) 10^3/cmm Neut % (Auto) 84.3 % Neut # (Auto) 11.80 H (1.8-7.7) 10^3/uL BMP 06/01/24 06/02/24 15:08 06:48 Sodium 136 135 L Potassium 3.5 3.6 Chloride 102 102 Carbon Dioxide 22 22 BUN 26 H 22 Creatinine 0.7 0.6 L Glucose 241 H 207 H Calcium 9.0 8.6 Cardiac Enzymes 06/01/24 06/01/24 06/02/24 Range/Units 15:08 20:12 06:48 Creatine Kinase 1398 H* 1027 H* (39-308) U/L Troponin T Baseline 910 H* (0-15) ng/L Troponin T Hi Sens 6Hr 1155 H (0-15) ng/L Troponin T Hi Sens 6Hr Delta 245 H* (0-12) ng/L NT-Pro-B Natriuret Pep 6869 H (0-125) pg/mL Liver Function 06/01/24 Range/Units 15:08 Total Bilirubin 0.4 (0.15-1.2) mg/dL AST 104 H (0-40) U/L ALT 19 (0-41) U/L Alkaline Phosphatase 95 (40-130) U/L Albumin 3.5 (3.5-5.2) g/dL Urine 06/01/24 Range/Units 15:29 Urine Color Dark yellow A (Yellow) Urine Appearance Clear (CLEAR) Urine pH 5.0 (5-7) Ur Specific Erhard 1.022 (1.005-1.030) Urine Protein 1+ A (Negative) Urine Glucose (UA) 1+ H (Normal) Urine Ketones Trace (Negative) Urine Nitrate Negative (Negative) Urine Bilirubin 1+ H (Negative) Ur Leukocyte Esterase Negative (Negative) Urine RBC 0-4 H (0-2) /hpf Urine WBC 0-4 H (0-5) /hpf Blood Bank 06/01/24 23:00 Blood Type A Positive Rho(D) Type Rh positive Antibody Screen Negative COVID Results 06/01/24 15:45 SARS-CoV-2 (PCR) Negative Microbiology 06/01/24 16:10 Occult Blood (FIT) - Final Stool 06/01/24 16:12 Blood Culture - Preliminary Blood SPECIMEN COLLECTED 06/01/24 16:10 Blood Culture - Preliminary Blood SPECIMEN COLLECTED Cardiac Studies: No Data to Display
--- NOTE | 2024-06-02 10:06 | PM.CONSULT ---
Providers/Reason For Consult Consulting Physician/Specialty*: dr. silverio gen surg Reason for Consult*: GIB Attending Physician: Melissa Park MD History of Present Illness History of Present Illness Bk Jackson is a 73 year old male who presented with two episodes of hematemesis. HD stable. Hospitalist consulting for EGD and hemostasis. History of CAD. High baseline trops. High risk per cardiology. Consented daughter who wants to proceed. Patient disoriented Medications/Allergies Home Medications ?Medication ?Instructions ?Recorded ?Confirmed ?Last Taken ?Type Lactobacillus acidophilus 1 cap PO BID 01/29/24 06/01/24 Unknown History (Acidophilus capsule) acetaminophen 325 mg tablet 650 mg PO Q4H PRN discomfort 01/29/24 06/01/24 Unknown History aspirin 81 mg tablet,delayed 81 mg PO DAILY 01/29/24 06/01/24 Unknown History release bisacodyl 10 mg rectal suppository 10 mg [place] DAILY 01/29/24 06/01/24 Unknown History calcium carbonate (Tums) 200 mg PO Q6H 01/29/24 06/01/24 Unknown History clopidogrel 75 mg tablet 75 mg PO DAILY 01/29/24 06/01/24 Unknown History insulin glargine 100 unit/mL 15 unit SUBCUT DAILY 01/29/24 06/01/24 Unknown History subcutaneous solution (Lantus U-100 Insulin) insulin lispro 100 unit/mL See Rx Instructions .Route .COMPLEX 01/29/24 06/01/24 Unknown History subcutaneous pen (Humalog KwikPen (U-100) Insulin) magnesium hydroxide 400 mg/5 mL 30 ml PO BID PRN discomfort 01/29/24 06/01/24 Unknown History oral suspension (Milk of Magnesia) menthol 0.44 %-zinc oxide 20.6 % 1 applic topical BID 01/29/24 06/01/24 Unknown History topical ointment (Moisture Barrier Ointment) multivitamin 1 tab PO DAILY 01/29/24 06/01/24 Unknown History ondansetron 4 mg disintegrating 4 mg PO Q8H PRN Nausea And Vomiting 01/29/24 06/01/24 Unknown History tablet pantoprazole 40 mg tablet,delayed 40 mg PO BID 01/29/24 06/01/24 Unknown History release protein supplement 30 ea PO DAILY 01/29/24 06/01/24 Unknown History tamsulosin 0.4 mg capsule 0.4 mg PO DAILY #30 caps 02/01/24 06/01/24 Unknown Rx aluminum-mag hydroxide-simethicone 30 ml PO Q2H PRN Constipation 06/01/24 06/01/24 Unknown History 400 mg-400 mg-40 mg/5 mL oral susp atropine 1 % eye drops 1 drp ophthalmic (eye) BID 06/01/24 06/01/24 Unknown History bisacodyl 5 mg tablet 20 mg PO DAILY 06/01/24 06/01/24 Unknown History brimonidine 0.2 % eye drops 1 drp ophthalmic (eye) BID 06/01/24 06/01/24 Unknown History guaifenesin 100 mg/5 mL oral liquid 200 mg PO Q6H PRN Cough 06/01/24 06/01/24 Unknown History ketotifen fumarate 0.025 % (0.035 1 drp ophthalmic (eye) DAILY 06/01/24 06/01/24 Unknown History %) eye drops (Allergy Eye (ketotifen)) loratadine 10 mg tablet (Claritin) 10 mg PO Q12H 06/01/24 06/01/24 Unknown History polyethylene glycol 3350 17 4 g PO DAILY 06/01/24 06/01/24 Unknown History gram/dose oral powder polyvinyl alcohol 1.4 % eye drops 2 drp ophthalmic (eye) Q6H 06/01/24 06/01/24 Unknown History prednisolone acetate 1 % eye 1 drp ophthalmic (eye) BID 06/01/24 06/01/24 Unknown History drops,suspension Allergies Allergy/AdvReac Type Severity Reaction Status Date / Time No Known Allergies Allergy Verified 01/27/24 18:12 Current Medications Generic Name Dose Route Start Last Admin Trade Name Freq PRN Reason Stop Dose Admin Dextrose/Sodium Chloride 1,000 mls @ 30 mls/hr 06/01/24 20:30 06/01/24 20:41 Dextrose 5%-Sod Chloride 0.9% IV 30 mls/hr .Q24H RAMIRO Administration Insulin Human Lispro 0 unit 06/02/24 08:00 06/02/24 08:27 Insulin Lispro 100 Unit/1 Ml SUBCUT Not Given TIDWM RAMIRO Protocol Pantoprazole Sodium 40 mg 06/01/24 19:48 06/02/24 08:36 Pantoprazole 40 Mg Sdv IVP 40 mg Q12H RAMIRO Administration Tamsulosin HCl 0.4 mg 06/02/24 09:00 06/02/24 08:28 Tamsulosin 0.4 Mg Capsule PO Not Given DAILY RAMIRO PFSH Acute PFSH: Medical History Upper gastrointestinal hemorrhage Anemia Overactive bladder Hypertension Coronary artery disease Paroxysmal atrial fibrillation Esophageal bleeding Type 2 diabetes mellitus Alzheimer's dementia Surgical History History of transmetatarsal amputation of foot Family History Denies family history of Bleeding disorder Social History Smoking and tobacco/nicotine status: never used tobacco/nicotine Alcohol intake: never Substance/Drug Use: never Vitals/I&O/Wt Last Vital Signs Temp 97.9 F 06/02/24 07:10 Pulse 86 06/02/24 07:10 Resp 22 H 06/02/24 07:10 BP 115/75 06/02/24 07:10 Pulse Ox 96 06/02/24 07:10 O2 Del Method Nasal Cannula 06/02/24 07:10 O2 Flow Rate 2 06/02/24 03:41 06/01/24 06/02/24 06/02/24 22:59 06:59 14:59 Intake Total 0 / 0 Balance 0 / 0 Weight last 48 hrs Weight 165 lb 4 oz Weight 159 lb 2 oz Weight 190 lb Physical Exam Narrative: Confused RRR Unlabored breathing RA Abdomen soft, nt, nd Data 06/02/24 06:48 06/02/24 06:48 Micro: Microbiology 06/01/24 16:10 Occult Blood (FIT) - Final Stool 06/01/24 16:12 Blood Culture - Preliminary Blood SPECIMEN COLLECTED 06/01/24 16:10 Blood Culture - Preliminary Blood SPECIMEN COLLECTED A&P Assessment and plan (1) GIB (gastrointestinal bleeding): Plan 73yo male who presented with 2 episodes of hematemesis. CAD - high risk per cardiology. Discussed risks and benefits with daughter and who agrees to proceed with EGD and possible hemostasis. PDMP PDMP Reviewed: Not Reviewed Coding Level of Care Code 12666 Diagnoses GIB (gastrointestinal bleeding) K92.2 Time Spent (min) 30
--- NOTE | 2024-06-02 10:37 | PM.CONSULT ---
Providers/Reason For Consult Consulting Physician/Specialty*: Medicine hospitalist Reason for Consult*: Acute HI in the setting of upper GI bleed Requesting Physician: Dr. Park Attending Physician: Melissa Park MD History of Present Illness History of Present Illness Bk Jackson is a 73 year old male patient resident of assisted living due to underlying history of Alzheimer disease, previous history of coronary disease, admitted overnight with symptoms of nausea vomiting apparently had a tooth history of 2-3 episodes of hematemesis at the facility he is living in. Clinically no history of chest pain or shortness of air. On arrival in the ER, the EKG showed ST elevation in isolated V3 and poor R wave progression in the lateral leads. Repeat EKG did not show any further changes. He remained asymptomatic from cardiovascular point of view no chest pain or shortness of air. The cardiac enzymes came back strongly positive, suggestive of acute coronary event. Overnight he remained stable. Currently lying comfortably on his bed. His vital stable blood pressure 116/74. Pulse 86/min regular. The supervisor underwriting clerks showed short runs of likely VT overnight. Because of yesterday's couple of episodes of hematemesis, with the previous history of significant upper GI bleed in the recent past patient was managed conservatively. His hemoglobin was 9.4 on arrival and he was transfused 1 unit of blood. As per history from the retirement and also had a recent surgery of his eyes, no detail available. Review of Systems Narrative: Detailed systemic 10 point review unremarkable except for as mentioned above in the history of present illness. Of note patient is not a great historian because of his underlying history of Alzheimer disease. Medications/Allergies Home Medications ?Medication ?Instructions ?Recorded ?Confirmed ?Last Taken ?Type Lactobacillus acidophilus 1 cap PO BID 01/29/24 06/01/24 Unknown History (Acidophilus capsule) acetaminophen 325 mg tablet 650 mg PO Q4H PRN discomfort 01/29/24 06/01/24 Unknown History aspirin 81 mg tablet,delayed 81 mg PO DAILY 01/29/24 06/01/24 Unknown History release bisacodyl 10 mg rectal suppository 10 mg DE DAILY 01/29/24 06/01/24 Unknown History calcium carbonate (Tums) 200 mg PO Q6H 01/29/24 06/01/24 Unknown History clopidogrel 75 mg tablet 75 mg PO DAILY 01/29/24 06/01/24 Unknown History insulin glargine 100 unit/mL 15 unit SUBCUT DAILY 01/29/24 06/01/24 Unknown History subcutaneous solution (Lantus U-100 Insulin) insulin lispro 100 unit/mL See Rx Instructions .Route .COMPLEX 01/29/24 06/01/24 Unknown History subcutaneous pen (Humalog KwikPen (U-100) Insulin) magnesium hydroxide 400 mg/5 mL 30 ml PO BID PRN discomfort 01/29/24 06/01/24 Unknown History oral suspension (Milk of Magnesia) menthol 0.44 %-zinc oxide 20.6 % 1 applic topical BID 01/29/24 06/01/24 Unknown History topical ointment (Moisture Barrier Ointment) multivitamin 1 tab PO DAILY 01/29/24 06/01/24 Unknown History ondansetron 4 mg disintegrating 4 mg PO Q8H PRN Nausea And Vomiting 01/29/24 06/01/24 Unknown History tablet pantoprazole 40 mg tablet,delayed 40 mg PO BID 01/29/24 06/01/24 Unknown History release protein supplement 30 ea PO DAILY 01/29/24 06/01/24 Unknown History tamsulosin 0.4 mg capsule 0.4 mg PO DAILY #30 caps 02/01/24 06/01/24 Unknown Rx aluminum-mag hydroxide-simethicone 30 ml PO Q2H PRN Constipation 06/01/24 06/01/24 Unknown History 400 mg-400 mg-40 mg/5 mL oral susp atropine 1 % eye drops 1 drp ophthalmic (eye) BID 06/01/24 06/01/24 Unknown History bisacodyl 5 mg tablet 20 mg PO DAILY 06/01/24 06/01/24 Unknown History brimonidine 0.2 % eye drops 1 drp ophthalmic (eye) BID 06/01/24 06/01/24 Unknown History guaifenesin 100 mg/5 mL oral liquid 200 mg PO Q6H PRN Cough 06/01/24 06/01/24 Unknown History ketotifen fumarate 0.025 % (0.035 1 drp ophthalmic (eye) DAILY 06/01/24 06/01/24 Unknown History %) eye drops (Allergy Eye (ketotifen)) loratadine 10 mg tablet (Claritin) 10 mg PO Q12H 06/01/24 06/01/24 Unknown History polyethylene glycol 3350 17 4 g PO DAILY 06/01/24 06/01/24 Unknown History gram/dose oral powder polyvinyl alcohol 1.4 % eye drops 2 drp ophthalmic (eye) Q6H 06/01/24 06/01/24 Unknown History prednisolone acetate 1 % eye 1 drp ophthalmic (eye) BID 06/01/24 06/01/24 Unknown History drops,suspension Allergies Allergy/AdvReac Type Severity Reaction Status Date / Time No Known Allergies Allergy Verified 01/27/24 18:12 Current Medications Generic Name Dose Route Start Last Admin Trade Name Denilsonq PRN Reason Stop Dose Admin Dextrose/Sodium Chloride 1,000 mls @ 30 mls/hr 06/01/24 20:30 06/01/24 20:41 Dextrose 5%-Sod Chloride 0.9% IV 30 mls/hr .Q24H RAMIRO Administration Insulin Human Lispro 0 unit 06/02/24 08:00 06/02/24 08:27 Insulin Lispro 100 Unit/1 Ml SUBCUT Not Given TIDWM RAMIRO Protocol Pantoprazole Sodium 40 mg 06/01/24 19:48 06/02/24 08:36 Pantoprazole 40 Mg Sdv IVP 40 mg Q12H RAMIRO Administration Tamsulosin HCl 0.4 mg 06/02/24 09:00 06/02/24 08:28 Tamsulosin 0.4 Mg Capsule PO Not Given DAILY RAMIRO PFSH Acute PFSH: Medical History Upper gastrointestinal hemorrhage Anemia Overactive bladder Hypertension Coronary artery disease Paroxysmal atrial fibrillation Esophageal bleeding Type 2 diabetes mellitus Alzheimer's dementia Surgical History History of transmetatarsal amputation of foot Family History Denies family history of Bleeding disorder Social History Smoking and tobacco/nicotine status: never used tobacco/nicotine Alcohol intake: never Substance/Drug Use: never Vitals/I&O/Wt Last Vital Signs Temp 97.9 F 06/02/24 07:10 Pulse 86 06/02/24 10:00 Resp 20 H 06/02/24 10:00 BP 115/75 03/02/25 07:10 Pulse Ox 96 06/02/24 10:00 O2 Del Method Nasal Cannula 06/02/24 10:00 O2 Flow Rate 2 06/02/24 10:00 06/01/24 06/02/24 06/02/24 22:59 06:59 14:59 Intake Total 0 / 0 Balance 0 / 0 Weight last 48 hrs Weight 165 lb 4 oz Weight 159 lb 2 oz Weight 190 lb Physical Exam Narrative: Laying comfortably in the bed. Not in any respiratory distress. Vital stable. Const: OTHER: Normal HENMT: OTHER: Normal Resp: OTHER: Good air entry bilaterally on auscultation of the chest. No added sounds. Cardio: OTHER: Normal first and second heart sounds. No added sounds. GI: OTHER: Soft nontender bowel sounds audible. Extremity: OTHER: Unremarkable. No lower extremity edema. Neuro: OTHER: Grossly intact motor functions Skin: OTHER: Warm and dry skin. Data 06/02/24 06:48 06/02/24 06:48 Micro: Microbiology 06/01/24 16:10 Occult Blood (FIT) - Final Stool 06/01/24 16:12 Blood Culture - Preliminary Blood SPECIMEN COLLECTED 06/01/24 16:10 Blood Culture - Preliminary Blood SPECIMEN COLLECTED A&P Assessment and plan (1) GIB (gastrointestinal bleeding): (2) Elevated troponin: (3) Anemia: (4) Coronary artery disease: Plan 73-year-old male patient with a known coronary artery disease, previous coronary interventions in the past, long-term resident of retirement due to history of Alzheimer disease presented overnight with couple of episodes of hematemesis at the facility. Cardiac enzymes are significant elevated suggestive of acute coronary event Currently patient is stable from cardiovascular point of view. No ongoing angina or heart failure symptoms. Vitals are stable. Plan: 1. Agreed with conservative management overnight due to hematemesis with the same history in the recent past. 2. Patient requires urgent upper GI scope evaluate the status of hematemesis. 3. Preprocedure cardiac evaluation reveals patient is at high risk for cardiac event periprocedure. However it is mandatory for him to have upper GI scope to stop any ongoing bleeding, and afterwards we can proceed with the appropriate management of HI. 4. Discussed the high cardiac risk periprocedure with the anesthesiology team, and hospitalist team we all agreed the patient needs an urgent scope for further management. PDMP PDMP Reviewed: Not Reviewed Coding Level of Care Code 52509 Diagnoses GIB (gastrointestinal bleeding) K92.2 Elevated troponin R79.89 Anemia D64.9 Coronary artery disease I25.10 Time Spent (min) 25
--- NOTE | 2024-06-02 11:13 | CTR_ITS ---
PROCEDURE INFORMATION: Exam: CT Chest Without Contrast; Diagnostic Exam date and time: 06/02/2024 11:54 AM Age: 73 years old Clinical indication: Abdominal pain; Generalized; Chest pressure; Additional info: Gi bleed TECHNIQUE: Imaging protocol: Diagnostic computed tomography of the chest without contrast. Radiation optimization: All CT scans at this facility use at least one of these dose optimization techniques: automated exposure control; mA and/or kV adjustment per patient size (includes targeted exams where dose is matched to clinical indication); or iterative reconstruction. COMPARISON: CR (CHEST, ) 06/01/2024 3:04 PM RADIATION DOSE METRICS: Total DLP (mGy-cm): 913.15 FINDINGS: Lungs: Motion abnormality limits evaluation of the upper lung cel[place]. Predominantly basilar ground-glass and solid nodularity in a bronchovascular distribution/tree-in-bud morphology. Septal thickening is noted, more dominant at the lung bases than the apices. Pleural spaces: Bilateral pleural effusions, [id number]-left. Heart: Small amount of fluid within the pericardial sac. Coronary arteries: Heavy atherosclerotic disease of the coronary vasculature. Lymph nodes: Calcified lymph nodes bilaterally. Vasculature: Atherosclerotic disease of the thoracic aorta, mild. Dilated aortic root measuring 4.4 x 4.2 cm. Diaphragm: Small sliding-type hiatal hernia. Bones/joints: Mildly demineralized bones diffusely. Degenerative change of the visualized osseous structures. Soft tissues: Bilateral gynecomastia. PROCEDURE INFORMATION: Exam: CT Abdomen And Pelvis Without Contrast Exam date and time: 06/02/2024 11:54 AM Age: 73 years old Clinical indication: Abdominal pain; Generalized; Chest pressure; Additional info: Gi bleed TECHNIQUE: Imaging protocol: Computed tomography of the abdomen and pelvis without contrast. Radiation optimization: All CT scans at this facility use at least one of these dose optimization techniques: automated exposure control; mA and/or kV adjustment per patient size (includes targeted exams where dose is matched to clinical indication); or iterative reconstruction. COMPARISON: CR (CHEST, ) 06/01/2024 3:04 PM RADIATION DOSE METRICS: Total DLP (mGy-cm): 913.15 FINDINGS: Liver: Liver granuloma. Gallbladder and biliary ducts: Hydropic gallbladder. Pancreas: Severe pancreatic atrophy. Spleen: Splenic granulomas. Adrenal glands: Normal. No mass. Kidneys and ureters: Nonobstructive bilateral nephrolithiasis. Kidneys appear somewhat large in size with symmetric perinephric stranding. Stomach and bowel: Heavy colonic stool burden. Rectal wall thickening is noted circumferentially. Perhaps mild mesorectal fat stranding. Appendix: No evidence of appendicitis. Intraperitoneal space: Unremarkable. No free air. No significant fluid collection. Vasculature: Moderate atherosclerotic disease of the abdominal aorta extending into the major branches. Peripheral arterial vascular disease. Calcified pelvic phleboliths. Lymph nodes: Prominent left common iliac lymph nodes, some of which demonstrate rounded morphology, however short axis dimensions do not reach pathologic criteria. Urinary bladder: Urinary bladder is distended, perhaps mild heterogeneity of the bladder wall diffusely. Reproductive: Dystrophic calcifications of the prostate gland. Bones/joints: Demineralized bones. Degenerative change of the visualized osseous structures. Moderate spinal canal stenosis at L4-L5. Soft tissues: Unremarkable. CT/[place] [id number] IMPRESSION: Findings which likely represent CHF/pulmonary edema. Superimposed infection is difficult to exclude. IMPRESSION: 1. Findings which can be seen in stercoral colitis. Correlate clinically. Difficult to exclude gastrointestinal bleed with the noncontrasted examination. 2. Hydropic gallbladder, consider right upper quadrant ultrasound for further assessment. 3. Findings of which can be seen in cystitis/upper urinary tract infection, correlate clinically. 4. Prominent left common iliac lymph nodes, correlate with left lower extremity pathology.
--- NOTE | 2024-06-02 11:29 | ANE.PACU2 ---
Inpatient post-anesthesia follow up: Airway intact: Yes Vital signs: Temperature 98.4 F Pulse Rate 84 Respiratory Rate 26 Blood Pressure 112/73 Pulse Oximetry 95 Oxygen Delivery Me thod Nasal Cannula Oxygen Flow Rate 2 Fraction of Inspir ed Oxygen Hydration adequate: Yes Nausea and vomiting: No Pain level: 1 Mental status: Baseline
[2024-06-02 11:47] LABS: Glucose Point of Care 173 mg/dL (70-110)
--- NOTE | 2024-06-02 12:50 | USR_ITS ---
PROCEDURE INFORMATION: Exam: US Abdomen, Limited; Right Upper Quadrant Exam date and time: 06/02/2024 2:49 PM Age: 73 years old Clinical indication: Abnormal findings; Abnormal radiologic finding of the abdomen; Radiologic exam and body structure: CT gb; Additional info: Hydropic gallbladder TECHNIQUE: Imaging protocol: Real time ultrasound of the abdomen with image documentation. Limited exam focused on the right upper quadrant. COMPARISON: [place] [id number] 06/02/2024 11:54 AM FINDINGS: Liver: Unremarkable. Gallbladder: Mildly distended. No gallstones. No gallbladder wall thickening or pericholecystic fluid. Negative sonographic Harrington's sign, as per the performing shearing machine tender. Biliary ducts: No stones. No ductal dilatation. Pancreas: Suboptimally visualized. Right kidney: No mass. No definite stones. No hydronephrosis. US/US gall bladder [id number] IMPRESSION: No acute sonographic findings.
--- NOTE | 2024-06-02 13:42 | P.PN_ITS ---
Subjective 2 Subjective: Seen this morning after EGD. Cardiology note and history and physical note appreciated. Patient very high risk for aspirin Plavix heparin to treat for NSTEMI therefore EGD was pursued first to rule out active GI bleeding. EGD has been clear with no evidence of bleed. He has been on Protonix and sucralfate overnight. CT abdomen pelvis was also obtained which shows hydropic gallbladder. Right upper quadrant ultrasound pending. We have started patient on empiric broad-spectrum antibiotics at this time. He denies any chest pain or shortness of breath. He did not have any chest pain in the last few weeks leading up to hospital admission. His main complaint for hospitalization was hematemesis. He has not had any other episodes during hospital stay overnight. Patient feeling comfortable at this time. Question comfortably in bed. Denies chest pain once again. Hemoglobin 11 this morning. Vitals/I&O/Wt Last Vital Signs Temp 98.0 F 06/02/24 11:44 Pulse 80 06/02/24 11:44 Resp 20 H 06/02/24 11:44 BP 102/71 06/02/24 11:44 Pulse Ox 93 06/02/24 11:44 O2 Del Method Nasal Cannula 06/02/24 11:44 O2 Flow Rate 3 06/02/24 11:28 06/01/24 06/02/24 06/02/24 22:59 06:59 14:59 Intake Total 0 / 0 Balance 0 / 0 Weight last 48 hrs Weight 74.956 kg Weight 72.178 kg Weight 86.183 kg Physical Exam 2 Narrative: General: Alert oriented x3, patient seen sitting up in bed appearing comfortable at this time. HEENT: Normocephalic, atraumatic, EOMI, breathing comfortably Cardio: Regular rate rhythm, normal S1-S2, Respiratory: Good bilateral air entry, no wheezes no rhonchi appreciated GI: Abdomen soft, nontender, nondistended, bowel sounds + Extremities: Trace bilateral lower extremity edema. Data 06/02/24 06:48 06/02/24 06:48 Micro: Microbiology 06/01/24 16:10 Occult Blood (FIT) - Final Stool 06/01/24 16:12 Blood Culture - Preliminary Blood SPECIMEN COLLECTED 06/01/24 16:10 Blood Culture - Preliminary Blood SPECIMEN COLLECTED A&P Assessment and plan (1) Hematemesis: (2) GIB (gastrointestinal bleeding): (3) NSTEMI (non-ST elevated myocardial infarction): (4) Anemia: (5) Stercoral colitis: (6) Alzheimer's dementia: (7) Type 2 diabetes mellitus: (8) Paroxysmal atrial fibrillation: (9) Coronary artery disease: (10) Hypertension: (11) Elevated troponin: (12) Constipation: Plan Hematemesis Recurrent episodes Stop aspirin and Plavix No active signs of GA on EKG No active chest pain Will call to neurosurgery for EGD in the morning However previous EGD was done rather recently Continue Protonix Patient to stay n.p.o. Start IV fluids D5 normal saline because he is diabetic Patient hemodynamically stable Elevated troponin: Monitor troponin serial EKGs no active chest pain, Hold off on aspirin Plavix or heparin for now secondary to recurrent episode of hematemesis ER has consulted cardiology: however at this point stabilization of GI bleed will take precedence and then if any intervention is needed we will follow-up with cardiology recommendations Alzheimer's dementia: No acute decompensation AOx4 Type II diabetic: Accu-Cheks every 4 hours during n.p.o. status Currently on D5 normal saline Elevated CPK: Continue IV fluids Monitor CPK Recently had eye surgery Patient not endorsing any recent falls A-fib without RVR Not a candidate to be on Eliquis Eliquis has been discontinued DNR/DNI as per the records N.p.o. DVT prophylaxis: SCDs 06/02/2024 EGD clear no evidence of bleeding Continue on Protonix 40 IV twice daily, add sucralfate Clear liquid diet ordered. FOBT is negative Hemoglobin at 11.0. Will check CBC every 12 hours. It is possible that after vomiting patient had a Victoria-Garcia tear or irritation due to which coffee-ground emesis was noted. It is unclear there source of hematemesis at this time as EGD was okay. Discussed in detail with cardiology at this time. ? Patient does have an NSTEMI and needs to be treated for it now that EGD has been completed. We will go ahead and place patient on Plavix and heparin drip. We will leave off aspirin at this time given the history of possible GI bleed. Echo shows LVEF 45% hypokinesis of mid distal anteroseptal anteroapical wall segments. CT chest on pelvis reviewed:1. Findings which can be seen in stercoral colitis. Correlate clinically. Difficult to exclude gastrointestinal bleed with the noncontrasted examination. 2. Hydropic gallbladder, consider right upper quadrant ultrasound for further assessment. 3. Findings of which can be seen in cystitis/upper urinary tract infection, correlate clinically. 4. Prominent left common iliac lymph nodes, correlate with left lower extremity pathology. Check ultrasound right upper quadrant rule out gallbladder disease at this time Leukocytosis 19,000 on admission was thought to be reactive secondary to acute vomiting and hematemesis however infection cannot be ruled out. Will place on empiric antibiotics vancomycin and Zosyn. Patient had 1 bowel movement overnight. Continue to monitor. Cardiology consulted, appreciate recommendations. Possibility of stercoral colitis which could also be source of leukocytosis. Will place on MiraLAX daily along with docusate senna aggressive bowel regimen. PDMP PDMP Reviewed: Not Reviewed Attestations 2 Medical Necessity Statement*: Anticipating more than 2 midnights for evaluation and treatment of upper GI bleed and then may need further cardiology evaluation Diagnoses Hematemesis K92.0 GIB (gastrointestinal bleeding) K92.2 NSTEMI (non-ST elevated myocardial infarction) I21.4 Anemia D64.9 Stercoral colitis K52.89 Alzheimer's dementia G30.9; F02.80 Type 2 diabetes mellitus E11.9 Paroxysmal atrial fibrillation I48.0 Coronary artery disease I25.10 Hypertension I10 Elevated troponin R79.89 Constipation K59.00
[2024-06-02 13:45] LABS: Hematocrit 35.2 % (37-53)
[2024-06-02] MEDS: vancomycin 1,250 MG/250 ML PIGGYBACK 166.67 MG IV (13:45)
--- NOTE | 2024-06-02 15:49 | PHA.VACGOAL ---
Vancomycin Goal - Goal Vancomycin Indication:: Other - Therapy Day of therpy:: Day []of [] . Actual body weight (kg): 165 lb 4 oz - Data Labs: WBC 13.99 10^3/uL (3.29-11.43) H 06/02/24 06:48 RBC 4.60 10^6/uL (3.85-5.65) 06/02/24 06:48 Hgb 10.90 g/dL (11.27-16.99) L 06/02/24 13:31 Hct 35.2 % (37-53) L 06/02/24 13:31 MCV 82.8 fl (82-101) 06/02/24 06:48 MCH 25.0 pg (27-33) L 06/02/24 06:48 MCHC 30.2 g/dL (30-55) 06/02/24 06:48 RDW 17.3 % (12.1-15.1) H 06/02/24 06:48 Sodium 135 mmol/L (136-145) L 06/02/24 06:48 Potassium 3.6 mmol/L (3.5-5.1) 06/02/24 06:48 Chloride 102 mmol/L (98-107) 06/02/24 06:48 Carbon Dioxide 22 mmol/L (22-29) 06/02/24 06:48 Anion Gap 14.6 (5-19) 06/02/24 06:48 BUN 22 mg/dL (8-23) 06/02/24 06:48 Creatinine 0.6 mg/dL (0.7-1.2) L 06/02/24 06:48 GFR Calculation Not Reportable 06/02/24 06:48 Treatment plan:: new consult Regimen:: 1250MG Q12H
[2024-06-02] MEDS: heparin 5,000 unit/mL INJ 1 mL IVP (16:16)
[2024-06-02 16:18] LABS: Glucose Point of Care 159 mg/dL (70-110)
[2024-06-02] MEDS: heparin drip 25,000 UNIT/500 ML PREMIX 21 UNIT IV (16:18)
[2024-06-02] MEDS: sucralfate 1 gm Tablet PO ×2 (16:20→22:52)
[2024-06-02] MEDS: piperacillin-tazobactam 3.375 GM in sodium chloride 0.9% (plus) 50 ML IV ×2 (16:20→22:54)
[2024-06-02] MEDS: clopidogrel 75 mg Tablet PO (16:20)
[2024-06-02] MEDS: atorvastatin 40 mg Tablet 80 MG PO (16:20)
[2024-06-02] MEDS: insulin lispro 100 unit/1 mL SUBCUT (16:23)
--- NOTE | 2024-06-02 17:51 | USCV_ITS ---
Manuel Bk Age: 73 Gender: M : 1950 Exam Date: 06/02/2024 09:32 Ordering Phys: Melissa Park MD Technologist: Nixon Michael Exam Location: [facility] [place] Indication: NSTEMI BP: 115 / 75 HR: 86 Rhythm: Sinus Technical Quality: Adequate MEASUREMENTS (Male / Female) Normal Values 2D ECHO LV Diastolic Diameter PLAX 5.3 cm 4.2 - 5.9 / 3.9 - 5.3 cm IVS Diastolic Thickness 0.7 cm 0.6 - 1.0 / 0.6 - 0.9 cm IVS Systolic Thickness 1.1 cm LVPW Diastolic Thickness 1.1 cm 0.6 - 1.0 / 0.6 - 0.9 cm LVPW Systolic Thickness 1.8 cm LVOT Diameter 2.0 cm LV Ejection Fraction 2D Teich 60.2 % LV Ejection Fraction MOD 4C 40.3 % LV Ejection Fraction MOD 2C 43.2 % LV Ejection Fraction 2C AL 42.8 % LA Diameter 3.4 cm RA Systolic Volume 4C AL 42.4 ml RA Systolic Volume 4C MOD 41.8 ml LA Sys Volume AL 48.8 cm cubed LA Sys Volume Index AL 25.3 cm cubed/m squared Aorta at Sinotubular Diameter 2.6 cm IVC Diameter 1.8 cm M-MODE LA Ao Ratio MM 1.1 MV E Point Septal Separation 0.9 cm AV Cusp Separation MM 1.5 cm DOPPLER AV Peak Velocity 120.3 cm/s LVOT Peak Velocity 106.0 cm/s AV Area Cont Eq vti 3.0 cm squared AV Area Cont Eq pk 2.9 cm squared MV Peak Velocity 126.0 cm/s MV Area PHT 7.3 cm squared Mitral E to A Ratio 1.2 TR Peak Velocity 241.0 cm/s TR Peak Gradient 23.2 mmHg TR Mean Velocity 196.0 cm/s TR Mean Gradient 16.1 mmHg TR Velocity Time Integral 64.3 cm PV Peak Velocity 97.0 cm/s RV Ejection Time 0.2 s FINDINGS Left Ventricle Hypokinesis of mid distal anterior, anteroseptal and anteroapical wall segments. Left ventricle systolic function moderately reduced estimated LVEF 45%. Grade 1 diastolic dysfunction. Right Ventricle Normal right ventricular size and systolic function. Right Atrium Normal right atrial size. Left Atrium Normal left atrial size. Mitral Valve Structurally normal mitral valve. Trace mitral valve regurgitation. Aortic Valve Thickened aortic valve. No aortic valve stenosis. Tricuspid Valve Structurally normal tricuspid valve. Trace tricuspid valve regurgitation. TVPG 25 mmHg. Pulmonic Valve Pulmonic valve not well visualized. Trace pulmonary valve regurgitation. Pericardium No pericardial effusion. Aorta Normal size aortic root and proximal ascending aorta. IVC Normal inferior vena cava. CONCLUSIONS Moderately reduced LV systolic function. LVEF 45%. Hypokinesis of mid distal anteroseptal and anteroapical wall segments. No significant valvular abnormality noted. Normal RV and pulmonary pressures. Edwin Mariscal MD (Electronically Signed) Final Date: 02 June 2024 13:01 S
[2024-06-02 20:15] LABS: Basophils % 0.3 %; Eosinophils # 0.1 10^3/uL (0.0-0.8); Eosinophils % 0.6 %; Hematocrit 34.8 % (37-53); Lymphocytes # 1.8 10^3/uL (0.8-4.8); Lymphocytes % 16.2 %; Mean Corpuscular HGB Conc 30.7 g/dL (30-55); Mean Corpuscular Hemoglobin 25.5 pg (27-33); Mean Corpuscular Volume 83.1 fl (82-101); Mean Platelet Volume 11.5 fL (7.4-10.4); Monocytes # 0.9 10^3/uL (0.2-0.9); Neutrophils # 8.05 10^3/uL (1.8-7.7); Neutrophils % 74.5 %; Nucleated Red Blood Cells % 0 %; Platelet Count 199 10^3/cmm (157-399); Red Blood Count 4.19 10^6/uL (3.85-5.65); Red Cell Distribution Width 17.2 % (12.1-15.1); White Blood Count 10.79 10^3/uL (3.29-11.43)
[2024-06-02 20:58] LABS: Glucose Point of Care 162 mg/dL (70-110)
[2024-06-02 23:16] LABS: Partial Thromboplastin Time 69.3 SECONDS (23.9-36.7)
[2024-06-03] VITALS (9 sets, daily range): BP systolic 106–112; BP diastolic 42–73; PULSE 72–84; RESP 18–26; TEMP 36.9–37; O2SAT 91–98
[2024-06-03 00:16] LABS: Glucose Point of Care 168 mg/dL (70-110)
[2024-06-03] MEDS: vancomycin 1,250 MG/250 ML PIGGYBACK 160 MG IV (00:49)
[2024-06-03 03:59] LABS: Glucose Point of Care 166 mg/dL (70-110)
[2024-06-03 04:47] LABS: Basophils % 0.5 %; Eosinophils # 0.1 10^3/uL (0.0-0.8); Eosinophils % 1.4 %; Hematocrit 34.3 % (37-53); Lymphocytes # 1.7 10^3/uL (0.8-4.8); Lymphocytes % 19.8 %; Mean Corpuscular HGB Conc 30.9 g/dL (30-55); Mean Corpuscular Hemoglobin 25.1 pg (27-33); Mean Corpuscular Volume 81.3 fl (82-101); Mean Platelet Volume 11.6 fL (7.4-10.4); Monocytes # 0.7 10^3/uL (0.2-0.9); Monocytes % 8.4 %; Neutrophils # 6.01 10^3/uL (1.8-7.7); Neutrophils % 69.4 %; Nucleated Red Blood Cells % 0 %; Platelet Count 180 10^3/cmm (157-399); Red Blood Count 4.22 10^6/uL (3.85-5.65); Red Cell Distribution Width 17.2 % (12.1-15.1); White Blood Count 8.65 10^3/uL (3.29-11.43)
[2024-06-03 05:05] LABS: Anion Gap 12.3 (5-19); Blood Urea Nitrogen 16 mg/dL (8-23); Carbon Dioxide 24 mmol/L (22-29); Chloride 102 mmol/L (98-107); Creatinine Clr Calc Pharmacy 85.8233; Glucose 180 mg/dL (65-115); Osmolality Calculated 286 mOsm/kg (285-295); Potassium 3.3 mmol/L (3.5-5.1); Sodium 135 mmol/L (136-145)
[2024-06-03 05:08] LABS: Creatine Phosphokinase 409 U/L (39-308)
[2024-06-03 05:10] LABS: Partial Thromboplastin Time 75.3 SECONDS (23.9-36.7)
[2024-06-03] MEDS: sucralfate 1 gm Tablet PO ×3 (05:56→18:21)
[2024-06-03] MEDS: piperacillin-tazobactam 3.375 GM in sodium chloride 0.9% (plus) 50 ML IV ×3 (06:07→21:14)
--- NOTE | 2024-06-03 09:01 | PC.CHAP ---
Pastoral Care Encounter/Spiritual Assessment Type of Contact [] Declined ticket counter visit [] Patient/Family/Request visit [] Outpatient visit [] Follow-up visit [] Physician referral [] Code/Alert [x] Routine visit [] Staff referral [] Actively dying [x] Patient sleeping [] Family support [] [] Out of room [] Palliative care [] [] Receiving care in room [] Pre-surgical visit [] Trauma [] Long length of stay [] ICU visit [] Other: Relational/Emotional Strength [] Patient feels connected with others/family/visitors/staff [] Distress [] Loneliness/isolation [] Abandonment Spirituality of Patient [] Person of Wendy [] Attends Lutheran of their Wendy [] Believes in Prayer [] Reads Bible or Mormonism materials [] There are Spiritual issues to be addressed Physician In Private Practice Interventions [x] Prayer [] Active listening [] Non-anxious presence [] Spiritual/emotional support [] Crisis/trauma care [] Spiritual counseling [] Bereavement support [] Provided bereavement packet [] Provided Bible/devotional materials [] Provided toy/stuffed animal, coloring book to patient or family member [] Provided Communion [] Anointing/[place] [] Salvation [] Completed spiritual assessment [] Other: Impact on Illness or Injury [] Angry [] Fearful [] Anxious [] Often cries [] Exhaustion [] Unable to work [] Unable to attend orthodox [] Unable to walk/stand [] Unable to read [] Unable to drive [] Unable to eat/drink [] Unable to sleep [] Unable to be with family [] Patient intubated [] Other: Summary Time spent with patient
[2024-06-03] MEDS: pantoprazole 40 mg SDV IVP ×2 (09:52→21:13)
[2024-06-03] MEDS: tamsulosin 0.4 mg Capsule PO (09:52)
[2024-06-03] MEDS: clopidogrel 75 mg Tablet PO (09:52)
[2024-06-03 09:54] LABS: Glucose Point of Care 186 mg/dL (70-110)
[2024-06-03 12:10] LABS: Partial Thromboplastin Time 54.2 SECONDS (23.9-36.7)
--- NOTE | 2024-06-03 12:25 | PC.SOCIAL ---
IMM Update pg 2 of IMM updated and reviewed w/ patient. Copy provided and copy dated, initialed and placed in chart.
[2024-06-03 12:41] LABS: Glucose Point of Care 180 mg/dL (70-110)
--- NOTE | 2024-06-03 12:52 | P.PN_ITS ---
Subjective 2 Subjective: Denies any new complaints today. States he would like to go back to [place] [facility]. He does not want to pursue an angiogram. Medications: Reviewed: Yes Vitals/I&O/Wt Last Vital Signs Temp 98.4 F 06/03/24 12:00 Pulse 84 06/03/24 12:00 Resp 26 H 06/03/24 12:00 BP 112/73 06/03/24 12:00 Pulse Ox 95 06/03/24 12:00 O2 Del Method Nasal Cannula 06/03/24 12:00 O2 Flow Rate 2 06/03/24 12:00 06/02/24 06/03/24 06/03/24 22:59 06:59 14:59 Intake Total 660 / 660 575.8 / 1235.8 255.85 / 255.85 Output Total 200 / 200 Balance 660 / 660 375.8 / 1035.8 255.85 / 255.85 Weight last 48 hrs Weight 73.799 kg Weight 74.956 kg Weight 72.178 kg Weight 86.183 kg Physical Exam 2 Narrative: General: No acute distress, AO x3 HEENT: PERRLA, pupils bilaterally equal and reactive, pallors not present Chest: Normal vesicular breath sounds, no added sounds, equal good air entry bilaterally CVS: S1-S2 regular, no murmurs, no tachycardia, no gallops, no rubs Abdomen: Soft, nontender, no organomegaly, bowel sounds present Neuro: No focal deficits, no facial deformity, AO x3, power 5/5 in all limbs Data 06/03/24 04:26 06/03/24 04:26 Micro: Microbiology 06/01/24 16:12 Blood Culture - Preliminary Blood NEGATIVE TO DATE 06/01/24 16:10 Blood Culture - Preliminary Blood NEGATIVE TO DATE A&P Assessment and plan (1) Hematemesis: (2) GIB (gastrointestinal bleeding): (3) NSTEMI (non-ST elevated myocardial infarction): (4) Anemia: (5) Stercoral colitis: (6) Alzheimer's dementia: (7) Type 2 diabetes mellitus: (8) Paroxysmal atrial fibrillation: (9) Coronary artery disease: (10) Hypertension: (11) Elevated troponin: (12) Constipation: Plan Hematemesis Recurrent episodes Stop aspirin and Plavix No active signs of MT on EKG No active chest pain Will call to neurosurgery for EGD in the morning However previous EGD was done rather recently Continue Protonix Patient to stay n.p.o. Start IV fluids D5 normal saline because he is diabetic Patient hemodynamically stable Elevated troponin: Monitor troponin serial EKGs no active chest pain, Hold off on aspirin Plavix or heparin for now secondary to recurrent episode of hematemesis ER has consulted cardiology: however at this point stabilization of GI bleed will take precedence and then if any intervention is needed we will follow-up with cardiology recommendations Alzheimer's dementia: No acute decompensation AOx4 Type II diabetic: Accu-Cheks every 4 hours during n.p.o. status Currently on D5 normal saline Elevated CPK: Continue IV fluids Monitor CPK Recently had eye surgery Patient not endorsing any recent falls A-fib without RVR Not a candidate to be on Eliquis Eliquis has been discontinued DNR/DNI as per the records N.p.o. DVT prophylaxis: [facility] [place]24 EGD clear no evidence of bleeding Continue on Protonix 40 IV twice daily, add sucralfate Clear liquid diet ordered. FOBT is negative Hemoglobin at 11.0. Will check CBC every 12 hours. It is possible that after vomiting patient had a Victoria-Garcia tear or irritation due to which coffee-ground emesis was noted. It is unclear there source of hematemesis at this time as EGD was okay. Discussed in detail with cardiology at this time. ? Patient does have an NSTEMI and needs to be treated for it now that EGD has been completed. We will go ahead and place patient on Plavix and heparin drip. We will leave off aspirin at this time given the history of possible GI bleed. Echo shows LVEF 45% hypokinesis of mid distal anteroseptal anteroapical wall segments. CT chest on pelvis reviewed:1. Findings which can be seen in stercoral colitis. Correlate clinically. Difficult to exclude gastrointestinal bleed with the noncontrasted examination. 2. Hydropic gallbladder, consider right upper quadrant ultrasound for further assessment. 3. Findings of which can be seen in cystitis/upper urinary tract infection, correlate clinically. 4. Prominent left common iliac lymph nodes, correlate with left lower extremity pathology. Check ultrasound right upper quadrant rule out gallbladder disease at this time Leukocytosis 19,000 on admission was thought to be reactive secondary to acute vomiting and hematemesis however infection cannot be ruled out. Will place on empiric antibiotics vancomycin and Zosyn. Patient had 1 bowel movement overnight. Continue to monitor. Cardiology consulted, appreciate recommendations. Possibility of stercoral colitis which could also be source of leukocytosis. Will place on MiraLAX daily along with docusate senna aggressive bowel regimen. June 03, 2024 Chart reviewed. Patient has a history of dementia, he is a long-term resident at [facility]. He denies any active chest pain currently. I discussed with him about proceeding with an angiogram, however patient is refusing at this time. He is able to answer questions related to his name, age, date of . Understands that he had a heart attack. He realizes he had an endoscopy recently to evaluate for bleeding. However he is declining undergoing an angiogram at this time. He states that he does not want to be poked with needles over and over. When I discussed medical management with him he is agreeable for the same. He states that his heart has been all checked out in the past . Given patient's noted history of dementia, we will revisit the question of undergoing an angiogram with him and see if he is able to provide us consistent answers with regards to his refusal to ensure that he understands the risks and benefits associated with refusal.he has several bruises over his face. He is able to tell me that he recently had laser surgery on the right eye as he has been unable to see. His vision with left eye is not compromised, he states he sustained bruises over left eyebrow and left medial orbit after having sustained a fall. His EGD was negative for any active bleeding currently. CT abdomen showed possible sterocral colitis, on zosyn and vanc currently. D/c vancomycin. Add lactulose and stool softeners Plan: D/c Vanc, contonue heparin drip, plavix, monitor HB, continue protonix 40mg IVP q12h, start diet, assess for any recurrent bleeding, for now he is refusing cardiac cath PDMP PDMP Reviewed: Not Reviewed Attestations 2 Medical Necessity Statement*: NSTEMI on medical management , iv abx Coding Level of Care Code Acute Code for Chg Fwd High MDM includes number and complexity of problems actively addressed during encounter, amount and/or complexity of data reviewed/ordered and described risk of complication, morbidity or mortality of management as documented Diagnoses Hematemesis K92.0 GIB (gastrointestinal bleeding) K92.2 NSTEMI (non-ST elevated myocardial infarction) I21.4 Anemia D64.9 Stercoral colitis K52.89 Alzheimer's dementia G30.9; F02.80 Type 2 diabetes mellitus E11.9 Paroxysmal atrial fibrillation I48.0 Coronary artery disease I25.10 Hypertension I10 Elevated troponin R79.89 Constipation K59.00
[2024-06-03] MEDS: insulin lispro 100 unit/1 mL SUBCUT (13:09)
--- NOTE | 2024-06-03 14:39 | P.CONIM_ITS ---
Providers/Reason For Consult 2 Consulting Physician/Specialty*: Wound Care Reason for Consult*: Open wounds to left foot and right ankle Requesting Physician: Marily Palmer MD Attending Physician: Marily Palmer MD History of Present Illness History of Present Illness Bk Jackson is a 73 year old male who was admitted on June 01 for NSTEMI and hematemesis from [facility] and is being managed by the hospitalist team as well as cardiology and general surgery. His past medical history includes type 2 diabetes, Alzheimer's, hypertension, coronary artery disease, and atrial fibrillation. At this time Mr. Jackson is oriented to person and time, although he did not know what town or hospital he was in. He was able to provide a correct answer in regards to the nursing facility he resides in. EGD was performed and ruled out GI bleed. He had previously refused the heart cath recommended by cardiology, but now states he is agreeable to this. He is currently on IV heparin and dual antiplatelet therapy for NSTEMI. Vital signs are stable. According to his nurse, his unix architect will be visiting him later this afternoon to discuss proceeding with heart cath. Mr. Jackson reports he had a lawnmower accident in which he cut his left foot 10 months ago. He was taken to [facility] in [place], [place] and had a transmetatarsal amputation of the left foot. He states he has been dealing with an open wound on this foot since the surgery. He states he has a wound care provider that rounds in [facility] weekly. His pedal pulses are biphasic on the left. There is no surrounding erythema, streaking, or warmth to this clustered wound. Upon evaluation, there is Hydrofera Blue in the wound. This was soaked with saline and removed with a scant amount of bleeding noted upon removal. There is a pressure ulcer noted to his right lateral malleolus. It is very superficial. This was cleansed with saline and gauze. There is a small amount of erythema surrounding the wound without streaking or warmth. His pedal pulses are monophasic on the right. Review of Systems 2 Const: Denies: fever(s), chills or body aches Card: Denies: chest pain or swelling of feet/ankles Skin/Breast: Reports: sores (left foot and right lateral ankle) and other (bruising around both eyes, fell out of wheelchair days before admission) Medications/Allergies Home Medications ?Medication ?Instructions ?Recorded ?Confirmed ?Last Taken ?Type Lactobacillus acidophilus 1 cap PO BID 01/29/24 Unknown History (Acidophilus capsule) acetaminophen 325 mg tablet 650 mg PO Q4H PRN discomfo rt 01/29/24 06/01/24 Unknown History aspirin 81 mg tablet,delayed 81 mg PO DAILY 01/29/24 0 06/01/24 Unknown History release bisacodyl 10 mg rectal suppository 10 mg TX DAILY 01/0206/01/24 Unknown History calcium carbonate (Tums) 200 mg PO Q6H 01/29/2406/01 Unknown History clopidogrel 75 mg tablet 75 mg PO DAILY 01/29/2404/27 Unknown History insulin glargine 100 unit/mL 15 unit SUBCUT DAILY 01/0206/01/24 Unknown History subcutaneous solution (Lantus U-100 Insulin) insulin lispro 100 unit/mL See Rx Instructions .Route .COMPLEX 01/29/24 06/01/24 Unknown History subcutaneous pen (Humalog KwikPen (U-100) Insulin) magnesium hydroxide 400 mg/5 mL 30 ml PO BID PRN disco mfort 01/29/24 06/01/24 Unknown History oral suspension (Milk of Magnesia) menthol 0.44 %-zinc oxide 20.6 % 1 applic topical BID 01/29/24 06/01/24 Unknown History topical ointment (Moisture Barrier Ointment) multivitamin 1 tab PO DAILY 01/29/2404/27 Unknown History ondansetron 4 mg disintegrating 4 mg PO Q8H PRN Nausea And Vomiting 01/29/24 06/01/24 Unknown History tablet pantoprazole 40 mg tablet,delayed 40 mg PO BID 4 06/01/24 Unknown History release protein supplement 30 ea PO DAILY 01/29/2404/27 Unknown History tamsulosin 0.4 mg capsule 0.4 mg PO DAILY #30 caps 06/01/24 Unknown Rx aluminum-mag hydroxide-simethicone 30 ml PO Q2H PRN Co nstipation 06/01/24 06/01/24 Unknown History 400 mg-400 mg-40 mg/5 mL oral susp atropine 1 % eye drops 1 drp ophthalmic (eye) BID 0 06/01/24 06/01/24 Unknown History bisacodyl 5 mg tablet 20 mg PO DAILY 06/01/2404/27 Unknown History brimonidine 0.2 % eye drops 1 drp ophthalmic (eye) BID 06/01/24 06/01/24 Unknown History guaifenesin 100 mg/5 mL oral liquid 200 mg PO Q6H PRN Cough 06/01/24 06/01/24 Unknown History ketotifen fumarate 0.025 % (0.035 1 drp ophthalmic (ey e) DAILY 06/01/24 06/01/24 Unknown History %) eye drops (Allergy Eye (ketotifen)) loratadine 10 mg tablet (Claritin) 10 mg PO Q12H 06/0106/01/24 Unknown History polyethylene glycol 3350 17 4 g PO DAILY 06/01/2404/27 Unknown History gram/dose oral powder polyvinyl alcohol 1.4 % eye drops 2 drp ophthalmic (ey e) Q6H 06/01/24 06/01/24 Unknown History prednisolone acetate 1 % eye 1 drp ophthalmic (eye) BI D 06/01/24 06/01/24 Unknown History drops,suspension Allergies Allergy/AdvReac Type Severity Reaction Status Date / Time No Known Allergies Allergy Verified 01/27/24 18:12 Current Medications Generic Name Dose Route Start Last Admin Trade Name Freq PRN Reason Stop Dose Admin Atorvastatin Calcium 80 mg 06/02/24 15:20 06/02/24 20:40 Atorvastatin 40 Mg Tablet PO Not Given BEDTIME RAMIRO Clopidogrel Bisulfate 75 mg 06/02/24 15:20 06/03/24 09:52 Clopidogrel 75 Mg Tablet PO 75 mg DAILY RAMIRO Administration Dextrose/Sodium Chloride 1,000 mls @ 30 mls/hr 06/01/24 20:30 06/02/24 20:41 Dextrose 5%-Sod Chloride 0.9% IV Not Given .Q24H RAMIRO Piperacillin Sod/Tazobactam 50 mls @ 12.5 mls/hr 06/02/24 14:30 06/03/24 06:07 Sod 3.375 gm/ Sodium Chloride IV 12.5 mls/hr Q8H RAMIRO Administration Protocol Heparin Sodium/Sodium Chloride 25,000 unit in 500 mls @ 0 mls/hr 06/02/24 15:30 06/03/24 12:35 Heparin Drip IV 14.01 unit/kg/hr CONT RAMIRO 21 mls/hr Titration Protocol Per Protocol Insulin Human Lispro 0 unit 06/02/24 08:00 06/03/24 13:09 Insulin Lispro 100 Unit/1 Ml SUBCUT 4 unit TIDWM RAMIRO Administration Protocol Pantoprazole Sodium 40 mg 06/01/24 19:48 06/03/24 09:52 Pantoprazole 40 Mg Sdv IVP 40 mg Q12H RAMIRO Administration Sucralfate 1 gm 06/02/24 11:15 06/03/24 12:13 Sucralfate 1 Gm Tablet PO 1 gm Q6H RAMIRO Administration Tamsulosin HCl 0.4 mg 06/02/24 09:00 06/03/24 09:52 Tamsulosin 0.4 Mg Capsule PO 0.4 mg DAILY RAMIRO Administration PFSH Acute 2 PFSH: Medical History (Updated 06/03/24 @ 14:58 by RADHA Dutton) Pressure ulcer of right ankle, stage 2 Non-pressure chronic ulcer of other part of left foot with fat layer exposed Type 2 diabetes mellitus with foot ulcer Upper gastrointestinal hemorrhage Anemia Overactive bladder Hypertension Coronary artery disease Paroxysmal atrial fibrillation Esophageal bleeding Type 2 diabetes mellitus Alzheimer's dementia Surgical History History of transmetatarsal amputation of foot Family History Denies family history of Bleeding disorder Social History Smoking and tobacco/nicotine status: never used tobacco/nicotine Alcohol intake: never Substance/Drug Use: never Vitals/I&O/Wt Last Vital Signs Temp 98.4 F 06/03/24 12:00 Pulse 84 06/03/24 12:00 Resp 26 H 06/03/24 12:00 BP 112/73 06/03/24 12:00 Pulse Ox 95 06/03/24 12:00 O2 Del Method Nasal Cannula 06/03/24 12:00 O2 Flow Rate 2 06/03/24 12:00 06/02/24 06/03/24 06/03/24 22:59 06:59 14:59 Intake Total 660 / 660 575.8 / 1235.8 255.85 / 255.85 Output Total 200 / 200 Balance 660 / 660 375.8 / 1035.8 255.85 / 255.85 Weight last 48 hrs Weight 73.799 kg Weight 74.956 kg Weight 72.178 kg Weight 86.183 kg Physical Exam 2 Const: COMMON NORMALS: no acute distress, average body habitus and alert G ENERAL APPEARANCE: cooperative ORIENTATION/CONSCIOUSNESS: Yes awake, Yes oriented to person and Yes oriented to time (year); not oriented to place (did not know what town or hospital he was in) HENMT: HEAD & SCALP: contusion (around eyes ) Neck/C-Spine: GENERAL: Yes normal visual inspection Chest: CHEST: Yes Symmetrical chest wall rise Resp: COMMON NORMALS: normal respiratory effort (respirations: 18), No retractions and No use of accessory muscles EFFORT & INSPECTION: Yes able to speak in complete sentences Cardio: COMMON NORMALS: regular rate and regular rhythm RATE: regular rate RHYTHM: regular rhythm PERIPHERAL PULSES: posterior tibial pulses present positive right (monophasic) dopplerable and positive left (biphasic) 2+ and dopplerable and dorsalis pedis present positive right (monophasic) dopplerable and positive left (biphasic) 2+ and dopplerable Extremity: COMMON NORMALS: no pedal edema RIGHT LOWER EXTREMITY: Yes foot & digits (open wound to lateral ankle) LEFT LOWER EXTREMITY: Yes foot & digits (s/p transmetatarsal amputation) Left foot and digits: Yes inspection (open wound to stump) Neuro: SENSORIUM/ORIENTATION: Yes alert, Yes oriented to person, No oriented to place (did not know what town or hospital he was in) and Yes oriented to time (year) Psych: COMMON NORMALS: Normal thought process present, cooperative, normal affect and speech normal ATTITUDE: Yes calm and Yes engaged ACTIVITY/MOTOR BEHAVIOR: Yes appropriate eye contact SPEECH: Yes normal speech THOUGHT PROCESS: Normal thought process present Skin: SKIN IMAGES (MALE): 1. left transmetatarsal amputation; open wound on stump 2. open ulcer of right lateral ankle WOUNDS: Yes wounds noted (see wound assessments) Data 06/03/24 04:26 06/03/24 04:26 Micro: Microbiology 06/01/24 16:12 Blood Culture - Preliminary Blood NEGATIVE TO DATE 06/01/24 16:10 Blood Culture - Preliminary Blood NEGATIVE TO DATE A&P Assessment and plan (1) Type 2 diabetes mellitus with foot ulcer: Given that patient is on heparin drip at this time, will hold on debridement. There are no active signs or symptoms of infection at this time. Callus formation noted to periwound that would benefit from curette debridement in the future. Patient has wound care provider who rounds weekly at [facility]. Cleanse ulcer with saline and gauze daily. Continue hydrofera blue ready to the wound bed daily. This ulceration does extend to the plantar surface of his foot. Once discharged, he would benefit from offloading footwear to prevent trauma to this area while ambulating. (2) Pressure ulcer of right ankle, stage 2: Appeared to have collagen dressing on this wound upon evaluation. Cleanse wound with saline and gauze daily. Apply hydrofera blue ready to the wound bed daily. Secure with optifoam for cushioning. May saturate Hydrofera Blue with saline if it is stuck to the wound bed upon removal. The erythema surrounding this wound could likely be from pressure. The wound does not appear to be infected at this time, will continue monitor for signs or symptoms of infection. Heel protectors should be worn while in bed or heels should be floated to reduce pressure over this area. Due to monophasic dopplarable pulses on the right side that are decreased in comparison with the left extremity. I have talked with Dr. Palmer regarding this and she will be ordering an SEBASTIAN while he is inpatient to investigate this further and rule out an arterial component that may further complicate wound healing. PDMP PDMP Reviewed: Not Reviewed Consult Attestations 2 Time Spent in Patient Care: 16 - 35 minutes Coding Level of Care Code Acute Code for [facility] Fwd Diagnoses Type 2 diabetes mellitus with foot ulcer E11.621; L97.509 Pressure ulcer of right ankle, stage 2 L89.512 Wound Assessment Wound Assessment Wound Number 1 Foot: Cluster Wound: Yes Descriptor: Left and Lateral Primary Etiology:: Diabetic Would/Ulcer of the Lower Extremity Length: (cm): 5 cm Width: (cm): 2 cm Depth: (cm): 0.2 cm Epithelialization:: None Tunneling:: No Undermining:: No Classification: Grade 2 Exudate Amount:: Small Drainage Type: Serosanguineous Foul Odor After Cleansing:: No Slough/Fibrin?: Yes Granulation Amount: Small (1-33%) Granulation Quality:: [place] Necrotic Amount:: Small (1-33%) Necrotic Type:: Adherent Slough Wound Number 2 Ankle: Cluster Wound: No Descriptor: Right Primary Etiology:: Pressure Ulcer Secondary Etiology:: Diabetic Would/Ulcer of the Lower Extremity Length: (cm): 1 cm Width: (cm): 0.9 cm Depth: (cm): 0.1 cm Epithelialization:: None Tunneling:: No Undermining:: No Classification: Stage 2 Limited to Skin Breakdown: Yes Exudate Amount:: Small Drainage Type: Serosanguineous Foul Odor After Cleansing:: No Slough/Fibrin?: No Granulation Amount: Small (1-33%) Granulation Quality:: [place] Necrotic Amount:: None Wound Orders Wound Number 1: left foot Dressing change frequency: Daily Wound Cleansing: Saline Primary Wound Care Dressing: hydrofera blue ready Secondary Wound Care Dressing: bordered gauze Bathing/Showering/Hygiene: May shower with protection but do not get dressing wet. Wound Number 2: right lateral ankle Dressing change frequency: Daily Wound Cleansing: Saline Primary Wound Care Dressing: hydrofera blue ready Secondary Wound Care Dressing: optifoam Bathing/Showering/Hygiene: May shower with protection but do not get dressing wet. Off-Loading: Other (heel protectors)
[2024-06-03] MEDS: lactulose oral liq 20 gm/30 mL UDC 10 GM PO (15:59)
[2024-06-03 17:20] LABS: Glucose Point of Care 163 mg/dL (70-110)
[2024-06-03] MEDS: heparin drip 25,000 UNIT/500 ML PREMIX 21 UNIT IV (17:25)
--- NOTE | 2024-06-03 17:52 | PM.PN ---
Subjective Subjective: Patient is tolerating anticoagulation and Plavix without further hematemesis. Denies chest pain. Vitals/I&O/Wt Last Vital Signs Temp 98.4 F 06/03/24 16:00 Pulse 79 06/03/24 16:00 Resp 20 H 06/03/24 16:00 BP 106/67 06/03/24 16:00 Pulse Ox 95 06/03/24 16:00 O2 Del Method Nasal Cannula 06/03/24 16:00 O2 Flow Rate 2 06/03/24 16:00 06/03/24 06/03/24 06/03/24 06:59 14:59 22:59 Intake Total 575.8 / 1235.8 305.85 / 305.85 88.35 / 394.20 Output Total 200 / 200 Balance 375.8 / 1035.8 305.85 / 305.85 88.35 / 394.20 Weight last 48 hrs Weight 162 lb 11.2 oz Weight 165 lb 4 oz Weight 159 lb 2 oz Physical Exam Narrative: GENERAL: Patient is alert, awake and oriented x3. HEART: Regular S1 and S2. No murmur, rub or gallop. LUNGS: Clear to auscultate bilaterally. CENTRAL NERVOUS SYSTEM: Grossly nonfocal. EXTREMITIES: Lower extremities with out edema bilaterally. Data 06/04/24 02:49 06/04/24 02:49 Micro: Microbiology 06/01/24 16:12 Blood Culture - Preliminary Blood NEGATIVE TO DATE 06/01/24 16:10 Blood Culture - Preliminary Blood NEGATIVE TO DATE A&P Assessment and plan (1) NSTEMI (non-ST elevated myocardial infarction): (2) Paroxysmal atrial fibrillation: (3) Coronary artery disease: (4) Hypertension: (5) Type 2 diabetes mellitus: (6) Hematemesis: (7) Alzheimer's dementia: Plan Patient has significant troponin elevation. Has dementia. Initial concern was for hematemesis. GI workup did not reveal active bleeding source. Hemoglobin has not dropped with anticoagulation and Plavix. All options discussed with patient and family including medical therapy versus invasive workup. They want to proceed with coronary angiogram. They understand the risk of bleeding. Plan for coronary angiogram with possible PCI tomorrow. NPO past midnight Thank you for involving us with care of this patient. Please call with questions PDMP PDMP Reviewed: Not Reviewed Attestations Medical Necessity Statement*: Care expected to cross 2 midnights. Coding Level of Care Code Acute Code for [facility] Fwd Diagnoses NSTEMI (non-ST elevated myocardial infarction) I21.4 Paroxysmal atrial fibrillation I48.0 Coronary artery disease I25.10 Hypertension I10 Type 2 diabetes mellitus E11.9 Hematemesis K92.0 Alzheimer's dementia G30.9; F02.80
--- NOTE | 2024-06-03 20:00 | PC.NURSE ---
Patient had a ptt that was due at 1830. Nurse collected blood sample and taken to lab.
[2024-06-03 20:14] LABS: Partial Thromboplastin Time 41.8 SECONDS (23.9-36.7)
[2024-06-03 20:19] LABS: Glucose Point of Care 198 mg/dL (70-110)
[2024-06-03] MEDS: atorvastatin 40 mg Tablet 80 MG PO (21:14)
[2024-06-04] VITALS (60 sets, daily range): BP systolic 96–140; BP diastolic 63–87; PULSE 72–134; RESP 14–29; TEMP 36.4–36.7; O2SAT 81–96
[2024-06-04 02:55] LABS: Basophils % 0.5 %; Eosinophils # 0.1 10^3/uL (0.0-0.8); Eosinophils % 2.1 %; Hematocrit 34.3 % (37-53); Lymphocytes # 1.3 10^3/uL (0.8-4.8); Lymphocytes % 23.1 %; Mean Corpuscular HGB Conc 30.9 g/dL (30-55); Mean Corpuscular Hemoglobin 25.2 pg (27-33); Mean Corpuscular Volume 81.7 fl (82-101); Mean Platelet Volume 11.1 fL (7.4-10.4); Monocytes # 0.6 10^3/uL (0.2-0.9); Monocytes % 9.5 %; Neutrophils # 3.72 10^3/uL (1.8-7.7); Neutrophils % 64.3 %; Nucleated Red Blood Cells % 0 %; Platelet Count 181 10^3/cmm (157-399); Red Cell Distribution Width 16.7 % (12.1-15.1); White Blood Count 5.79 10^3/uL (3.29-11.43)
[2024-06-04 03:12] LABS: Alanine Aminotransferase 17 U/L (0-41); Albumin Level 2.7 g/dL (3.5-5.2); Alkaline Phosphatase 72 U/L (40-130); Anion Gap 12.1 (5-19); Aspartate Amino Transferase 33 U/L (0-40); Blood Urea Nitrogen 10 mg/dL (8-23); Calcium 8.3 mg/dL (8.5-10.5); Carbon Dioxide 25 mmol/L (22-29); Chloride 102 mmol/L (98-107); Globulin 3.5 g/dL (1.3-4.6); Glucose 179 mg/dL (65-115); Osmolality Calculated 286 mOsm/kg (285-295); Potassium 3.1 mmol/L (3.5-5.1); Sodium 136 mmol/L (136-145); Total Bilirubin 0.7 mg/dL (0.15-1.2); Total Protein 6.2 g/dL (6.6-8.7)
[2024-06-04 03:17] LABS: Partial Thromboplastin Time 73.7 SECONDS (23.9-36.7)
[2024-06-04 03:18] LABS: Creatine Phosphokinase 195 U/L (39-308)
[2024-06-04] MEDS: piperacillin-tazobactam 3.375 GM in sodium chloride 0.9% (plus) 50 ML IV ×3 (08:00→21:37)
[2024-06-04] MEDS: aspirin 81 mg Chew Tablet 324 MG PO (08:01)
[2024-06-04] MEDS: clopidogrel 75 mg Tablet PO (08:01)
[2024-06-04] MEDS: tamsulosin 0.4 mg Capsule PO (08:01)
[2024-06-04 08:02] LABS: Glucose Point of Care 167 mg/dL (70-110)
[2024-06-04] MEDS: pantoprazole 40 mg SDV IVP (08:02)
--- NOTE | 2024-06-04 08:08 | XACV_ITS ---
Exam Room: 2 Ht: 178 cm Wt: 73 kg BSA: 1.91 m2 Gender: Male : 1950 Any Known Allergies: No known allergies Exam Priority: Routine Procedure(s): Procedure Description: Diagnostic procedure Procedure Description: Left Heart Catheterization Procedure Description: Left ventriculography Procedure Description: Coronary Angiography Diagnostic Cath Status: Urgent Diagnostic Findings * Left main artery has diffuse moderate disease. LAD is ostially occluded. Chronic total occlusion with weak collaterals to distal vessel. Left circumflex artery has diffuse moderate luminal irregularities. RCA has proximal vessel 30-40% stenosis. distal vessel has 70-80% stenosis. PLV and PDA have diffuse severe disease. * Coronary angiography shows right dominance. Conclusions 1. Left main artery has diffuse moderate disease. LAD is ostially occluded. Chronic total occlusion with weak collaterals to distal vessel. Left circumflex artery has diffuse moderate luminal irregularities. RCA has proximal vessel 30-40% stenosis. distal vessel has 70-80% stenosis. PLV and PDA have diffuse severe disease. 2. Severe multivessel coronary artery disease. Medical therapy. 3. Mild left ventricular systolic dysfunction. Ejection fraction of 40%. Recommendations * Medical therapy at this time. Patient has severe dementia. He is DNR/DNI. LAD occlusion is not acute. Discussed with patient and family. They are agreeable with plan. LV gram shows EF of 40%. Interventional RX Recommendation: medical therapy and/or counseling Diagnostic RX Recommendation: medical therapy and/or counseling Ventriculography Ejection Fraction: 40.0 % Pressures Phase:Rest AO : 103 / 64 ( 77 ) @ 8:56:00 AM 107 / 63 ( 79 ) @ 9:08:00 AM LV : 113 / 2 / 13 @ 9:07:00 AM 107 / 0 / 14 @ 9:08:00 AM Clinical Evaluation EBL: 5mL-10mL Procedural Details Procedure Consent Obtained. Pre-Procedure Time Out. Identified patient by full name and date of as verbalized by the patient/guarantor. Does the consent match the physician's order: Yes. Accurate & Complete Informed Consent: Yes. Inpatient/Outpatient History & Physical on Chart: Yes. If H&P is completed, is and addenduem needed: No. Visualize and Verify Site with Patient/Guarantor: N/A. Relevant Radiology Images available: Yes. The risks, benefits, and alternatives of sedation and/or procedure were discussed by physician. The patient agrees to continue. Procedure started. Heparin drip was infusing on CSU. It was stopped by Zeke Stephens RN at [address] Marie verbal order. [facility] Clinical Fraility Score: 6: Moderately Frail. Water Chaser Indications: Worsening Angina/NSTEMI. Chest Pain Symptom Assessment: Typical Angina Symptoms. Cardiovascular Instability: No. Correct patient, site and procedure confirmed by cath team. PERRLA. Strong, equal hand clothes marker bilaterally. Lungs clear x 5 lobes. IV Site on Arrival: 20 gauge in the right forearm. IV Site on Arrival: 20 gauge in the right forearm. IV Fluids: 0.9% NaCl at KVO. 800 mL infused prior to labor relations consultant. Pre Procedural Pulses: bilateral dorsalis pedis was Doppled. Pre Procedural Pulses: bilateral posterior tibial was Doppled. Pre Procedural Pulses: bilateral radial was Absent. Oxygen started at 2liters/min via nasal canula. right groin was prepped with chloroprep then draped in the usual sterile fashion. right radial was prepped with chloroprep then draped in the usual sterile fashion. Physician notified. Baseline sample Acquired. HR: 86 BPM. Patient's family unavailable. Equipment: 6F - Radial. Cardiac Cath Pack. ACIST Manifold Kit Model BT 2000. Heparinized Saline (2 units/mL), 1000 mL bag. 40 mEq KCl rider infusing at 10 mEq/hr on arrival to the labor relations consultant for a potassium of 3.1 on this AM labs. Physician arrived. Physician scrubbed in. Immediate Pre-Procedure Time Out. Correct Patient: Yes; Correct Procedure: Yes; Correct Site: Yes; Correct Patient Position: Yes; Correct Supplies: Yes; Dried Flammable Prep: Yes; Blood Products Available: N/A;. Lidocaine 1% infiltrated to the right groin. Arterial access obtained with micropuncture set. Wire unable to thread. Wire and needle out. Dr. Marie holding manual pressure. Arterial access obtained with micropuncture set. Lidocaine 1% infiltrated to the right groin. A 5 qatari JR4 catheter in over the exchange J wire. Catheter removed over the exchange J wire. A 5 qatari JL4.5 catheter in over the exchange J wire. Multiple views taken of left coronary artery. Catheter removed over the exchange J wire. A 5 qatari JR4 catheter in over the exchange J wire. Multiple views taken of right coronary artery. Catheter removed over the exchange J wire. A 5 qatari Angled Pig catheter in over the exchange J wire. EDP Sample taken: LV 113/2,13; HR: 54 BPM; SpO2: 98%. LV gram performed in RICHARD @ 10 mL/second for a total of 30 mL. EDP Sample taken: LV 107/0,14; HR: 38 BPM; SpO2: 98%. Pullback taken: LV Off; AO Off; Mean: , Peak to Peak: , SEP: ; HR: 27 BPM; SpO2: 98%. Catheter removed over the standard J wire. A Right femoral angiogram was performed to determine safe placement of closure device. Medication's Wasted: Lidocaine 1% = 6 mL. Medication's Wasted: Nitro = 50 mg. Medication's Wasted: Heparin = 1000 units. Medication's Wasted: Other = Versed 1 mg. Medication's Wasted: Other = Fentanyl 75 mcg. Total IV fluids: 33 mL. ACT drawn. Results 163 seconds. Therapeutic limits - pre-heparin administration 90-150 seconds and monitoring heparin during a vascular procedure >250 seconds. Mynx placed without complications. No signs or symptoms of hematoma noted. Sterile dressing applied per usual sterile fashion. Lot # [id number]. Exp. . Post Procedure: Pulses reassessed and unchanged. PERRLA. Strong, equal hand clothes marker bilaterally. No VTE prophylaxis required. Post-op diagnosis: Severe multivessel CAD; medical management. Complications: none. Estimated blood loss: 5mL-10mL. Responsiveness - Normal response to verbal stimuli; alert and oriented, PERRLA. Airway - Unaffected, no intervention required; spontaneous ventilation. Circulation: W/N/L, pulses unchanged. Nausea/Vomiting: No. Procedure completed. Patient transferred by bed to 1st floor. Vital chart was stopped. Access Site Site: Right Femoral artery Sheath Size: 6 Fr Hemostasis Success: Unsuccessful Procedure Medications Start: 8:40 AM Stop: 8:40 AM Medication: Benadryl Amount: 25 mg Route: I.V. Start: 8:40 AM Stop: 8:40 AM Medication: Versed Amount: 1 mg Route: I.V. Start: 8:40 AM Stop: 8:40 AM Medication: Fentanyl Amount: 25 mcg Route: I.V. I, the attending physician, have reviewed and verified all procedure medications. Yes, all medications given per verbal order History/Risk Factors Hypertension: Yes Dyslipidemia: No Peripheral Arterial Disease (PAD): No Myocardial Infarction ([place]): No Obesity: No Renal Disease: No Tobacco Use: Never Prior Interventions PCI: No CABG: No Valve Surgery: No Report Signatures Finalized by Adi Marie MD on 06/17/2024 09:51 PM
[2024-06-04] MEDS: lidocaine 1% 5 ML in potassium chloride premix 100 ML 26.25 ML IV (08:19)
--- NOTE | 2024-06-04 08:39 | W.PM.OPSUD ---
Surgery/Procedure H&P Update DATE OF PROCEDURE: June 04, 2024 DATE H&P PERFORMED: 06/02/24 H&P UPDATE INFORMATION: I have reviewed H&P completed within last 30 days, I have examined patient prior to procedure and Changes to prior documentation as noted here CHANGES TO PREVIOUS DOCUMENTATION: Patient had hematemesis initially. GI workup is negative for active bleeding source. Has been on heparin and Plavix for last 2 days without drop in hemoglobin or further hematemesis episodes. Plan for coronary angiogram with possible PCI. Patient and family understand risks including bleeding. PREOP DIAGNOSIS: NSTEMI PRIMARY INDICATION FOR PROCEDURE: NSTEMI PLANNED PROCEDURE: Left heart cath with possible PCI PATIENT REASSESSED PRIOR TO SEDATION, WITH NO CHANGE NOTED: Yes PHYSICAL EXAM: alert, oriented x 3, clear to auscultation bilaterally and regular rate & rhythm ADDITIONAL INFORMATION: Moderate sedation
--- NOTE | 2024-06-04 09:47 | P.PCN_ITS ---
Procedure Note: Date of procedure: 06/04/24 Pre-procedure diagnosis: NSTEMI Post-procedure diagnosis: other (Severe multivessel coronary artery disease) Procedure: Left main artery has diffuse moderate disease. Left circumflex artery has d iffuse moderate luminal irregularities. LAD is totally occluded at ostium. Weak collaterals seen to it. RCA has distal vessel 70-80% stenosis. PDA and PLV have diffuse significant disease Medical therapy at this time. Patient has severe dementia. He is DNR/DNI. LAD occlusion is not acute. Discussed with patient and family. They are agreeable with plan. LV gram shows EF of 40%. Performing Provider: Adi Marie Estimated blood loss (mL): 10 Complications: None Condition: stable Disposition: floor Coding Level of Care Code Acute Code for [facility]
--- NOTE | 2024-06-04 11:13 | PC.NURSE ---
received from cardiac laborer drying department at 0930 via bed.report received.pt is awake.denies pain.sr w/ bbb on monitor.right femoral angiogram access site was closed by minx closure in laborer drying department.right groin with drsg dry and intact.no hematoma noted.right leg is warm to touch and with brisk capillary refill.palpable dp pulse noted.bp stable.pt instructed in activity restrictions s/p femoral artery procedure...and instructed to notify staff for any bleeding,pain,numbness,sob, or for any concerns at all.pt verb understanding of instructions...reinforcement needed...as pt is forgetful.will cont to monitor closely.
--- NOTE | 2024-06-04 11:20 | PC.NURSE ---
pt has taken all monitor leads off and refuses to have them reapplied.states putting those things all over my skin is bullshit! .rn explained that monitoring of the heart is necessary after the procedure..but pt continues to refuse.will try again shortly to apply monitor patches
[2024-06-04 12:20] LABS: Glucose Point of Care 208 mg/dL (70-110)
[2024-06-04] MEDS: lactulose oral liq 20 gm/30 mL UDC 10 GM PO (12:47)
[2024-06-04] MEDS: sucralfate 1 gm Tablet PO ×2 (12:47→17:56)
[2024-06-04] MEDS: potassium chloride oral liq 20 mEq/15 mL UDC 40 MEQ PO (12:47)
[2024-06-04] MEDS: insulin lispro 100 unit/1 mL SUBCUT ×2 (12:48→17:56)
--- NOTE | 2024-06-04 13:47 | PM.PN ---
Subjective Subjective: Patient is status post coronary angiogram today. Findings as detailed below. Medications: Reviewed: Yes Vitals/I&O/Wt Last Vital Signs Temp 97.7 F 06/04/24 12:00 Pulse 97 06/04/24 12:00 Resp 16 06/04/24 12:00 BP 119/70 06/04/24 12:00 Pulse Ox 92 06/04/24 12:00 O2 Del Method Room Air 06/04/24 12:00 O2 Flow Rate 2 06/03/24 16:00 06/03/24 06/04/24 06/04/24 22:59 06:59 14:59 Intake Total 397.45 / 703.30 220.583 / 923.883 170 / 170 Output Total 700 / 700 Balance 397.45 / 703.30 220.583 / 923.883 -530 / -530 Weight last 48 hrs Weight 73.799 kg Physical Exam Narrative: General: No acute distress, AO x3 HEENT: PERRLA, pupils bilaterally equal and reactive, pallors not present Chest: Normal vesicular breath sounds, no added sounds, equal good air entry bilaterally CVS: S1-S2 regular, no murmurs, no tachycardia, no gallops, no rubs Abdomen: Soft, nontender, no organomegaly, bowel sounds present Neuro: No focal deficits, no facial deformity, AO x3, power 5/5 in all limbs Data 06/04/24 02:49 06/04/24 02:49 A&P Assessment and plan (1) Hematemesis: (2) GIB (gastrointestinal bleeding): (3) NSTEMI (non-ST elevated myocardial infarction): (4) Anemia: (5) Stercoral colitis: (6) Alzheimer's dementia: (7) Type 2 diabetes mellitus: (8) Paroxysmal atrial fibrillation: (9) Coronary artery disease: (10) Hypertension: (11) Elevated troponin: (12) Constipation: Plan Hematemesis Recurrent episodes Stop aspirin and Plavix No active signs of NV on EKG No active chest pain Will call to neurosurgery for EGD in the morning However previous EGD was done rather recently Continue Protonix Patient to stay n.p.o. Start IV fluids D5 normal saline because he is diabetic Patient hemodynamically stable Elevated troponin: Monitor troponin serial EKGs no active chest pain, Hold off on aspirin Plavix or heparin for now secondary to recurrent episode of hematemesis ER has consulted cardiology: however at this point stabilization of GI bleed will take precedence and then if any intervention is needed we will follow-up with cardiology recommendations Alzheimer's dementia: No acute decompensation AOx4 Type II diabetic: Accu-Cheks every 4 hours during n.p.o. status Currently on D5 normal saline Elevated CPK: Continue IV fluids Monitor CPK Recently had eye surgery Patient not endorsing any recent falls A-fib without RVR Not a candidate to be on Eliquis Eliquis has been discontinued DNR/DNI as per the records N.p.o. DVT prophylaxis: SCDs 06/02/2024 EGD clear no evidence of bleeding Continue on Protonix 40 IV twice daily, add sucralfate Clear liquid diet ordered. FOBT is negative Hemoglobin at 11.0. Will check CBC every 12 hours. It is possible that after vomiting patient had a Victoria-Garcia tear or irritation due to which coffee-ground emesis was noted. It is unclear there source of hematemesis at this time as EGD was okay. Discussed in detail with cardiology at this time. ? Patient does have an NSTEMI and needs to be treated for it now that EGD has been completed. We will go ahead and place patient on Plavix and heparin drip. We will leave off aspirin at this time given the history of possible GI bleed. Echo shows LVEF 45% hypokinesis of mid distal anteroseptal anteroapical wall segments. CT chest on pelvis reviewed:1. Findings which can be seen in stercoral colitis. Correlate clinically. Difficult to exclude gastrointestinal bleed with the noncontrasted examination. 2. Hydropic gallbladder, consider right upper quadrant ultrasound for further assessment. 3. Findings of which can be seen in cystitis/upper urinary tract infection, correlate clinically. 4. Prominent left common iliac lymph nodes, correlate with left lower extremity pathology. Check ultrasound right upper quadrant rule out gallbladder disease at this time Leukocytosis 19,000 on admission was thought to be reactive secondary to acute vomiting and hematemesis however infection cannot be ruled out. Will place on empiric antibiotics vancomycin and Zosyn. Patient had 1 bowel movement overnight. Continue to monitor. Cardiology consulted, appreciate recommendations. Possibility of stercoral colitis which could also be source of leukocytosis. Will place on MiraLAX daily along with docusate senna aggressive bowel regimen. June 03, 2024 Chart reviewed. Patient has a history of dementia, he is a long-term resident at [facility]. He denies any active chest pain currently. I discussed with him about proceeding with an angiogram, however patient is refusing at this time. He is able to answer questions related to his name, age, date of . Understands that he had a heart attack. He realizes he had an endoscopy recently to evaluate for bleeding. However he is declining undergoing an angiogram at this time. He states that he does not want to be poked with needles over and over. When I discussed medical management with him he is agreeable for the same. He states that his heart has been all checked out in the past . Given patient's noted history of dementia, we will revisit the question of undergoing an angiogram with him and see if he is able to provide us consistent answers with regards to his refusal to ensure that he understands the risks and benefits associated with refusal.he has several bruises over his face. He is able to tell me that he recently had laser surgery on the right eye as he has been unable to see. His vision with left eye is not compromised, he states he sustained bruises over left eyebrow and left medial orbit after having sustained a fall. His EGD was negative for any active bleeding currently. CT abdomen showed possible sterocral colitis, on zosyn and vanc currently. D/c vancomycin. Add lactulose and stool softeners Plan: D/c Vanc, contonue heparin drip, plavix, monitor HB, continue protonix 40mg IVP q12h, start diet, assess for any recurrent bleeding, for now he is refusing cardiac cath June 04, 2024 Yesterday patient had changed his mind and was agreeable to proceeding with the procedure last evening. Given his dementia it appears he is forgetful. Consent was eventually provided by his daughter to proceed with the procedure. Patient is status post coronary angiogram this morning.Left main artery has diffuse moderate disease. Left circumflex artery has diffuse moderate luminal irregularities. LAD is totally occluded at ostium. Weak collaterals seen to it. RCA has distal vessel 70-80% stenosis. PDA and PLV have diffuse significant disease. Medical therapy is recommended at this time. LV gram shows EF of 40%. Patient denies any new complaints. He is eager to return home. Currently on a 4-hour recommended bedrest postprocedure. No signs of hematemesis. No recurrence of GI bleeding. Hemoglobin is stable at 10.6 this morning. Heparin has been discontinued. Continue Plavix 75 mg p.o. daily. Continue statins. CK has now normalized. Continue lactulose to avoid constipation. Continue sucralfate. Transition Protonix from IV to p.o. If remains stable over the next 24 hours with regards to her hemoglobin, no further GI bleeding encountered, may be able to discharge back to facility. PDMP PDMP Reviewed: Not Reviewed Attestations Medical Necessity Statement*: s/p procedure today as above, monitor Hb and any signs of GI bleeding, anticipate discharge in upcoming 24-48 hrs if remains stable Coding Level of Care Code Acute Code for [facility] Fwd Diagnoses Hematemesis K92.0 GIB (gastrointestinal bleeding) K92.2 NSTEMI (non-ST elevated myocardial infarction) I21.4 Anemia D64.9 Stercoral colitis K52.89 Alzheimer's dementia G30.9; F02.80 Type 2 diabetes mellitus E11.9 Paroxysmal atrial fibrillation I48.0 Coronary artery disease I25.10 Hypertension I10 Elevated troponin R79.89 Constipation K59.00
--- NOTE | 2024-06-04 15:51 | PM.CONSULT ---
Providers/Reason For Consult Consulting Physician/Specialty*: Wound Care Reason for Consult*: Open wounds to left foot and right ankle Requesting Physician: Marily Palmer MD Attending Physician: Marily Palmer MD History of Present Illness History of Present Illness Patient underwent a coronary angiogram this morning. He reports he feels well. Currently being managed by hospitalist and refrigerating oiler. He states he is ready to go back to [facility]. The nurses have been applying Hydrofera Blue to his wounds. Review of Systems Const: Denies: fever(s), chills or body aches Card: Denies: chest pain Skin/Breast: Reports: other (bruising around both eyes, fell out of wheelchair days before admission) Medications/Allergies Home Medications ?Medication ?Instructions ?Recorded ?Confirmed ?Last Taken ?Type Lactobacillus acidophilus 1 cap PO BID 01/29/24 06/01/24 Unknown History (Acidophilus capsule) acetaminophen 325 mg tablet 650 mg PO Q4H PRN discomfort 01/29/24 06/01/24 Unknown History aspirin 81 mg tablet,delayed 81 mg PO DAILY 01/29/24 06/01/24 Unknown History release bisacodyl 10 mg rectal suppository 10 mg UT DAILY 01/29/24 06/01/24 Unknown History calcium carbonate (Tums) 200 mg PO Q6H 01/29/24 06/01/24 Unknown History clopidogrel 75 mg tablet 75 mg PO DAILY 01/29/24 06/01/24 Unknown History insulin glargine 100 unit/mL 15 unit SUBCUT DAILY 01/29/24 06/01/24 Unknown History subcutaneous solution (Lantus U-100 Insulin) insulin lispro 100 unit/mL See Rx Instructions .Route .COMPLEX 01/29/24 06/01/24 Unknown History subcutaneous pen (Humalog KwikPen (U-100) Insulin) magnesium hydroxide 400 mg/5 mL 30 ml PO BID PRN discomfort 01/29/24 06/01/24 Unknown History oral suspension (Milk of Magnesia) menthol 0.44 %-zinc oxide 20.6 % 1 applic topical BID 01/29/24 06/01/24 Unknown History topical ointment (Moisture Barrier Ointment) multivitamin 1 tab PO DAILY 01/29/24 06/01/24 Unknown History ondansetron 4 mg disintegrating 4 mg PO Q8H PRN Nausea And Vomiting 01/29/24 06/01/24 Unknown History tablet pantoprazole 40 mg tablet,delayed 40 mg PO BID 01/29/24 06/01/24 Unknown History release protein supplement 30 ea PO DAILY 01/29/24 06/01/24 Unknown History tamsulosin 0.4 mg capsule 0.4 mg PO DAILY #30 caps 02/01/24 06/01/24 Unknown Rx aluminum-mag hydroxide-simethicone 30 ml PO Q2H PRN Constipation 06/01/24 06/01/24 Unknown History 400 mg-400 mg-40 mg/5 mL oral susp atropine 1 % eye drops 1 drp ophthalmic (eye) BID 06/01/24 06/01/24 Unknown History bisacodyl 5 mg tablet 20 mg PO DAILY 06/01/24 06/01/24 Unknown History brimonidine 0.2 % eye drops 1 drp ophthalmic (eye) BID 06/01/24 06/01/24 Unknown History guaifenesin 100 mg/5 mL oral liquid 200 mg PO Q6H PRN Cough 06/01/24 06/01/24 Unknown History ketotifen fumarate 0.025 % (0.035 1 drp ophthalmic (eye) DAILY 06/01/24 06/01/24 Unknown History %) eye drops (Allergy Eye (ketotifen)) loratadine 10 mg tablet (Claritin) 10 mg PO Q12H 06/01/24 06/01/24 Unknown History polyethylene glycol 3350 17 4 g PO DAILY 06/01/24 06/01/24 Unknown History gram/dose oral powder polyvinyl alcohol 1.4 % eye drops 2 drp ophthalmic (eye) Q6H 06/01/24 06/01/24 Unknown History prednisolone acetate 1 % eye 1 drp ophthalmic (eye) BID 06/01/24 06/01/24 Unknown History drops,suspension Allergies Allergy/AdvReac Type Severity Reaction Status Date / Time No Known Allergies Allergy Verified 01/27/24 18:12 Current Medications Generic Name Dose Route Start Last Admin Trade Name Freq PRN Reason Stop Dose Admin Atorvastatin Calcium 80 mg 06/02/24 15:20 06/03/24 21:14 Atorvastatin 40 Mg Tablet PO 80 mg BEDTIME RAMIRO Administration Clopidogrel Bisulfate 75 mg 06/02/24 15:20 06/04/24 08:01 Clopidogrel 75 Mg Tablet PO 75 mg DAILY RAMIRO Administration Piperacillin Sod/Tazobactam 50 mls @ 12.5 mls/hr 06/02/24 14:30 06/04/24 14:55 Sod 3.375 gm/ Sodium Chloride IV 12.5 mls/hr Q8H RAMIRO Administration Protocol Insulin Human Lispro 0 unit 06/02/24 08:00 06/04/24 12:48 Insulin Lispro 100 Unit/1 Ml SUBCUT 6 unit TIDWM RAMIRO Administration Protocol Lactulose 10 gm 06/03/24 13:16 06/04/24 12:47 Lactulose Oral Liq 20 Gm/30 Ml Udc PO 10 gm Q24H RAMIRO Administration Polyethylene Glycol 17 gm 06/04/24 09:00 06/04/24 08:02 Polyethylene Glycol 3350 Pkt 17 Gm PO Not Given DAILY RAMIRO Sucralfate 1 gm 06/02/24 11:15 06/04/24 12:47 Sucralfate 1 Gm Tablet PO 1 gm Q6H RAMIRO Administration Tamsulosin HCl 0.4 mg 06/02/24 09:00 06/04/24 08:01 Tamsulosin 0.4 Mg Capsule PO 0.4 mg DAILY RAMIRO Administration PFSH Acute PFSH: Medical History Pressure ulcer of right ankle, stage 2 Non-pressure chronic ulcer of other part of left foot with fat layer exposed Type 2 diabetes mellitus with foot ulcer Upper gastrointestinal hemorrhage Anemia Overactive bladder Hypertension Coronary artery disease Paroxysmal atrial fibrillation Esophageal bleeding Type 2 diabetes mellitus Alzheimer's dementia Surgical History (Updated 06/04/24 @ 16:07 by RADHA Dutton) S/P coronary angiogram History of transmetatarsal amputation of foot Family History Denies family history of Bleeding disorder Social History Smoking and tobacco/nicotine status: never used tobacco/nicotine Alcohol intake: never Substance/Drug Use: never Vitals/I&O/Wt Last Vital Signs Temp 97.7 F 06/04/24 12:00 Pulse 97 06/04/24 12:00 Resp 16 06/04/24 12:00 BP 119/70 06/04/24 12:00 Pulse Ox 92 06/04/24 12:00 O2 Del Method Room Air 06/04/24 12:00 O2 Flow Rate 2 06/03/24 16:00 06/04/24 06/04/24 06/04/24 06:59 14:59 22:59 Intake Total 220.583 / 923.883 170 / 170 Output Total 1100 / 1100 Balance 220.583 / 923.883 -930 / -930 Weight last 48 hrs Weight 73.799 kg Physical Exam Const: COMMON NORMALS: no acute distress, average body habitus and alert GENERAL APPEARANCE: cooperative ORIENTATION/CONSCIOUSNESS: Yes awake HENMT: HEAD & SCALP: contusion (around eyes ) Neck/C-Spine: GENERAL: Yes normal visual inspection Chest: CHEST: Yes Symmetrical chest wall rise Resp: COMMON NORMALS: No retractions and No use of accessory muscles EFFORT & INSPECTION: Yes able to speak in complete sentences Cardio: COMMON NORMALS: regular rate RATE: regular rate Extremity: COMMON NORMALS: no pedal edema RIGHT LOWER EXTREMITY: Yes upper leg (dressing intact to right anterior thigh) and Yes foot & digits (open wound to lateral ankle) LEFT LOWER EXTREMITY: Yes foot & digits (s/p transmetatarsal amputation) Left foot and digits: Yes inspection (open wound to stump) Neuro: SENSORIUM/ORIENTATION: Yes alert Psych: COMMON NORMALS: Normal thought process present, cooperative, normal affect and speech normal ATTITUDE: Yes calm and Yes engaged ACTIVITY/MOTOR BEHAVIOR: Yes appropriate eye contact SPEECH: Yes normal speech THOUGHT PROCESS: Normal thought process present Skin: WOUNDS: Yes wounds noted (see wound assessments) Data 06/04/24 02:49 06/04/24 02:49 A&P Assessment and plan (1) Type 2 diabetes mellitus with foot ulcer: Patient continues to remain negative for signs or symptoms of active wound infection at this time. Callus noted to the periwound. Continue utilizing Hydrofera Blue to the wound bed. This should be changed daily. Patient should follow-up with wound care in the [facility] as he had been previously once he is discharged. He would benefit from an offloading device when ambulating to expedite wound healing after discharge. (2) Pressure ulcer of right ankle, stage 2: Erythema to periwound is slightly improved. The heel protectors were in his room but he did not want them put on. After we had a discussion, he was agreeable to wear them while he is in the bed. Continue with Hydrofera Blue to the wound daily covered with an Optifoam. Patient should follow-up with wound care in the [facility] as he had been prior to admission. Continued offloading to this area will be needed to achieve wound healing. Further arterial investigation outpatient may be beneficial on the right lower extremity if the wound fails to heal as expected. PDMP PDMP Reviewed: Not Reviewed Consult Attestations Time Spent in Patient Care: 16 - 35 minutes Coding Level of Care Code Acute Code for [facility] Fwd Diagnoses Type 2 diabetes mellitus with foot ulcer E11.621; L97.509 Pressure ulcer of right ankle, stage 2 L89.512 Wound Assessment Wound Assessment Wound Number 1 Foot: Cluster Wound: Yes Descriptor: Left and Lateral Primary Etiology:: Diabetic Would/Ulcer of the Lower Extremity Length: (cm): 5 cm Width: (cm): 2 cm Depth: (cm): 0.2 cm Epithelialization:: None Tunneling:: No Undermining:: No Classification: Grade 2 Exudate Amount:: Small Drainage Type: Serosanguineous Foul Odor After Cleansing:: No Slough/Fibrin?: Yes Granulation Amount: Small (1-33%) Granulation Quality:: [place] Necrotic Amount:: Small (1-33%) Necrotic Type:: Adherent Slough Wound Number 2 Ankle: Cluster Wound: No Descriptor: Right Primary Etiology:: Pressure Ulcer Secondary Etiology:: Diabetic Would/Ulcer of the Lower Extremity Length: (cm): 1 cm Width: (cm): 0.9 cm Depth: (cm): 0.1 cm Epithelialization:: Small (1-33%) Tunneling:: No Undermining:: No Classification: Stage 2 Limited to Skin Breakdown: Yes Exudate Amount:: Small Drainage Type: Serosanguineous Foul Odor After Cleansing:: No Slough/Fibrin?: No Granulation Amount: Small (1-33%) Granulation Quality:: [place] Necrotic Amount:: None Wound Orders Wound Number 1: left foot Dressing change frequency: Daily Wound Cleansing: Saline Primary Wound Care Dressing: hydrofera blue ready Secondary Wound Care Dressing: bordered gauze Bathing/Showering/Hygiene: May shower with protection but do not get dressing wet. Wound Number 2: right lateral ankle Dressing change frequency: Daily Wound Cleansing: Saline Primary Wound Care Dressing: hydrofera blue ready Secondary Wound Care Dressing: optifoam Bathing/Showering/Hygiene: May shower with protection but do not get dressing wet. Off-Loading: Other (heel protectors) Discharge From Services Discharge from Wound Care Rounding (will follow up if needed per hospitalist request)
--- NOTE | 2024-06-04 17:03 | PM.PN ---
Vitals/I&O/Wt Last Vital Signs Temp 97.7 F 06/04/24 12:00 Pulse 77 06/04/24 16:00 Resp 15 06/04/24 16:00 BP 107/75 06/04/24 16:00 Pulse Ox 92 06/04/24 12:00 O2 Del Method Room Air 06/04/24 12:00 O2 Flow Rate 2 06/03/24 16:00 06/04/24 06/04/24 06/04/24 06:59 14:59 22:59 Intake Total 220.583 / 923.883 170 / 170 Output Total 1100 / 1100 Balance 220.583 / 923.883 -930 / -930 Weight last 48 hrs Weight 162 lb 11.2 oz Data 06/04/24 02:49 06/04/24 02:49 A&P PDMP PDMP Reviewed: Not Reviewed Coding Level of Care Code Acute Code for [facility] Fwd
[2024-06-04 17:14] LABS: Glucose Point of Care 167 mg/dL (70-110)
[2024-06-04] MEDS: pantoprazole DR 40 mg Tablet PO (17:56)
[2024-06-04 20:42] LABS: Glucose Point of Care 137 mg/dL (70-110)
[2024-06-05] VITALS (9 sets, daily range): BP systolic 108–173; BP diastolic 65–92; PULSE 82–102; RESP 16–21; TEMP 36.6–36.8; O2SAT 91–97
--- NOTE | 2024-06-05 04:30 | PC.NURSE ---
Addendum entered by Norma Ortiz RN 06/05/24 04:33: Also this nurse tried to educate patient on importance of check blood work while in the hospital and patient continued to yell go away, this is bullshit it is 4 o'clock in the morning Original Note: Attempt to get morning labs, phlebotomy attempted and nursing attempted, patient yelled at both parties yelling This is bullshit it is 4 o'clock in the morning then preceded to roll the opposite way yelling go away multiple times
[2024-06-05] MEDS: piperacillin-tazobactam 3.375 GM in sodium chloride 0.9% (plus) 50 ML IV (05:45)
[2024-06-05] MEDS: insulin lispro 100 unit/1 mL SUBCUT ×2 (08:52→11:57)
[2024-06-05] MEDS: pantoprazole DR 40 mg Tablet PO (08:54)
[2024-06-05] MEDS: tamsulosin 0.4 mg Capsule PO (08:54)
[2024-06-05] MEDS: clopidogrel 75 mg Tablet PO (08:54)
[2024-06-05 09:05] LABS: Glucose Point of Care 143 mg/dL (70-110)
[2024-06-05 09:05] LABS: Glucose Point of Care 185 mg/dL (70-110)
--- NOTE | 2024-06-05 09:06 | P.PN_ITS ---
<Statement entered by Adi Marie M.D - 06/07/24 21:29> Patient was evaluated and cared for in conjunction with an advanced practice practitioner. I personally examined the patient and reviewed the chart and all pertinent data including imaging, telemetry, and laboratory results. I discussed the patient in detail with the advanced practice practitioner. Please see their note for complete progress note, results and agreed upon plan of care for the patient. GENERAL: Patient is alert HEART: Regular S1 and S2 LUNGS: Clear to auscultation bilaterally EXTREMITIES: Lower extremities with no edema Patient has multivessel coronary artery disease with REHAB AID of LAD. Diffuse RCA disease. Patient is chest pain free. Has dementia. After discussion with patient and family, shared decision made to medically treat him. Aggressive medical therapy. Outpatient cardiology follow up. Subjective 2 Subjective: He has not had any chest pain overnight. Plan to continue aspirin, Plavix, statin, beta-gian for medical management of multivessel CAD. Blood pressure has been elevated. Recommend amlodipine 5 mg daily metoprolol 25 mg twice a day. Vitals/I&O/Wt Last Vital Signs Temp 98.1 F 06/05/24 11:35 Pulse 96 06/05/24 11:35 Resp 21 H 06/05/24 11:35 BP 108/65 06/05/24 11:35 Pulse Ox 93 06/05/24 11:35 O2 Del Method Room Air 06/05/24 11:35 O2 Flow Rate 2 06/05/24 02:57 06/05/24 06/05/24 06/05/24 06:59 14:59 22:59 Intake Total 250 / 825.317 410 / 410 Output Total 250 / 250 Balance 250 / -274.683 160 / 160 Weight last 48 hrs Weight 163 lb 3.2 oz Physical Exam 2 Const: COMMON NORMALS: no acute distress GENERAL APPEARANCE: cooperative and comfortable ORIENTATION/CONSCIOUSNESS: Yes awake and Yes oriented to person Chest: COMMONS NORMALS: normal inspection of the chest and normal palpation of entire chest wall CHEST: Yes Symmetrical chest wall rise Resp: COMMON NORMALS: normal respiratory effort, No retractions, No use of accessory muscles and clear to auscultation bilaterally EFFORT & INSPECTION: Yes symmetric chest movement AUSCULTATION: clear to auscultation bilaterally Cardio: COMMON NORMALS: regular rate, regular rhythm, S1 normal heart sound present, S2 normal heart sound present, No gallops present (Cardio), No clicks present (Cardio), No murmurs present (Cardio) and No rub (Cardio) RATE: r egular rate RHYTHM: regular rhythm HEART SOUNDS: S1 normal heart sound present and S2 normal heart sound present PERIPHERAL PULSES: radial pulses present Extremity: COMMON NORMALS: no pedal edema Neuro: COMMON NORMALS: moves all extremities SENSORIUM/ORIENTATION: Yes oriented to person Data 06/04/24 02:49 06/04/24 02:49 A&P Assessment and plan (1) Coronary artery disease: (2) Hypertension: (3) NSTEMI (non-ST elevated myocardial infarction): Plan Medical management of multivessel CAD. May discharge home today if okay with hospitalist service. Continue aspirin, Plavix, add metoprolol and amlodipine for better control of hypertension. PDMP PDMP Reviewed: Not Reviewed Attestations 2 Medical Necessity Statement*: possible discharge, medical management of CAD Coding Level of Care Code Acute Code for [facility] Diagnoses Coronary artery disease I25.10 Hypertension I10 NSTEMI (non-ST elevated myocardial infarction) I21.4
--- NOTE | 2024-06-05 09:35 | P.DS_ITS ---
Discharge Providers Date of Admission: 06/01/24 16:44 Date of Discharge: June 05, 2024 Attending Provider at Admission: Melissa Park MD Attending Provider at Discharge: Marily Palmer MD Diagnoses at Discharge Discharge Diagnosis (1) Type 2 diabetes mellitus with foot ulcer: Status: Acute (2) Pressure ulcer of right ankle, stage 2: Status: Acute (3) NSTEMI (non-ST elevated myocardial infarction): Status: Acute (4) Paroxysmal atrial fibrillation: Status: Acute (5) Hematemesis: Status: Acute (6) GIB (gastrointestinal bleeding): Status: Acute (7) Stercoral colitis: Status: Acute (8) Constipation: Status: Acute Reason for Visit Reason for Visit: n/v Hospital Course Hospital Course 73-year-old male with a history of dementia, long-term resident at [facility], admitted to the hospital on June 01, 2024 with chief complaints of hematemesis. He also had NSTEMI with elevated troponins in the thousand range. He was started on treatment with heparin drip and Plavix for the NSTEMI with recomm endations to proceed with EGD prior to undergoing coronary angiogram. He has a history of GI bleeding. On June 02, 2024 which showed the esophagus stomach and duodenum were normal without any stigmata of bleeding. Thereafter he also underwent coronary angiogram on June 04, 2024 which showed Left main artery has diffuse moderate disease. Left circumflex artery has diffuse moderate luminal irregularities. LAD is totally occluded at ostium. Weak collaterals seen to it. RCA has distal vessel 70-80% stenosis. PDA and PLV have diffuse significant disease. Medical therapy is recommended per cardiology at this time.LV gram shows EF of 40%. He is on aspirin Plavix and statin. Patient was additionally evaluated by the wound care nurse. There were no active signs or symptoms of infection over his calluses. Hydrofera Blue was utilized over the wound bed. Recommendation is to change daily. Patient will [facility] to [facility] after [facility]. He had mild rhabdomyolysis, CK was at 1000 upon admission, normalized as of June 04, 2024. Statins were therefore continued. He had leukocytosis of 17,000 upon admission which has normalized during course of admission. He had a CT of the abdomen and pelvis upon admission which showed suspicion for stercoral colitis. He was treated with piperacillin/tazobactam, which has been transitioned to Augmentin to take total treatment course to 10 days for colitis.He has no diarrhea. For constipation he received lactulose. He is chest pain-free at the time of discharge. [facility]charged back to [facility] in stable to improved condition. Physical Exam Narrative: General: No acute distress, AO x3 HEENT: PERRLA, pupils bilaterally equal and reactive, pallors not present Chest: Normal vesicular breath sounds, no added sounds, equal good air entry bilaterally CVS: S1-S2 regular, no murmurs, no tachycardia, no gallops, no rubs Abdomen: Soft, nontender, no organomegaly, bowel sounds present Neuro: No focal deficits, no facial deformity, AO x3, power 5/5 in all limbs ext: s/p amputation left leg Discharge Data Studies Completed and Pending Completed Studies During Hospitalization Category Date Time Status CT chest abdomen pelvis [[place] [id number] Cat Scan 06/02/24 11:13 Completed ] Stat XR chest 1V portable [id number] Stat Exams 06/01/24 14:49 Completed CV. 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 Chest/Abdomen/Pelvis CT 06/02/24 11:13 IMPRESSION: Findings which likely represent CHF/pulmonary edema. Superimposed infection is difficult to exclude. IMPRESSION: 1. Findings which can be seen in stercoral colitis. Correlate clinically. Difficult to exclude gastrointestinal bleed with the noncontrasted examination. 2. Hydropic gallbladder, consider right upper quadrant ultrasound for further assessment. 3. Findings of which can be seen in cystitis/upper urinary tract infection, correlate clinically. 4. Prominent left common iliac lymph nodes, correlate with left lower extremity pathology. Gallbladder Ultrasound 06/02/24 12:50 IMPRESSION: No acute sonographic findings. Laboratory Results WBC 5.79 10^3/uL (3.29-11.43) 06/04/24 02:49 RBC 4.20 10^6/uL (3.85-5.65) 06/04/24 02:49 Hgb 10.60 g/dL (11.27-16.99) L 06/04/24 02:49 Hct 34.3 % (37-53) L 06/04/24 02:49 MCV 81.7 fl (82-101) L 06/04/24 02:49 MCH 25.2 pg (27-33) L 06/04/24 02:49 MCHC 30.9 g/dL (30-55) 06/04/24 02:49 RDW 16.7 % (12.1-15.1) H 06/04/24 02:49 Plt Count 181 10^3/cmm (157-399) 06/04/24 02:49 MPV 11.1 fL (7.4-10.4) H 06/04/24 02:49 Neut % (Auto) 64.3 % 06/04/24 02:49 Lymph % (Auto) 23.1 % 06/04/24 02:49 [place] % (Auto) 9.5 % 06/04/24 02:49 Eos % (Auto) 2.1 % 06/04/24 02:49 Baso % (Auto) 0.5 % 06/04/24 02:49 Neut # (Auto) 3.72 10^3/uL (1.8-7.7) 06/04/24 02:49 Lymph # (Auto) 1.3 10^3/uL (0.8-4.8) 06/04/24 02:49 [place] # (Auto) 0.6 10^3/uL (0.2-0.9) 06/04/24 02:49 Eos # (Auto) 0.1 10^3/uL (0.0-0.8) 06/04/24 02:49 Baso # (Auto) 0.0 10^3/uL (0.0-0.1) 06/04/24 02:49 Nucleated RBC % (auto) 0 % 06/04/24 02:49 Nucleated RBCs # 0.0 /100WBC 06/04/24 02:49 APTT 73.7 SECONDS (23.9-36.7) H D 06/04/24 02:49 Sodium 136 mmol/L (136-145) 06/04/24 02:49 Potassium 3.1 mmol/L (3.5-5.1) L 06/04/24 02:49 Chloride 102 mmol/L (98-107) 06/04/24 02:49 Carbon Dioxide 25 mmol/L (22-29) 06/04/24 02:49 Anion Gap 12.1 (5-19) 06/04/24 02:49 BUN 10 mg/dL (8-23) 06/04/24 02:49 Creatinine 0.5 mg/dL (0.7-1.2) L 06/04/24 02:49 GFR Calculation Not Reportable 06/04/24 02:49 Glucose 179 mg/dL (65-115) H 06/04/24 02:49 POC Glucose 185 mg/dL (70-110) H 06/05/24 06:17 Calculated Osmolality 286 mOsm/kg (285-295) 06/04/24 02:49 Lactic Acid Cancelled 06/01/24 16:00 Lactic Acid (Sepsis) 1.4 mmol/L (0.5-2.2) 06/01/24 18:34 Calcium 8.3 mg/dL (8.5-10.5) L 06/04/24 02:49 Magnesium 1.8 mg/dL (1.7-2.3) 06/02/24 06:48 Total Bilirubin 0.7 mg/dL (0.15-1.2) 06/04/24 02:49 AST 33 U/L (0-40) 06/04/24 02:49 ALT 17 U/L (0-41) 06/04/24 02:49 Alkaline Phosphatase 72 U/L (40-130) 06/04/24 02:49 Creatine Kinase 195 U/L (39-308) 06/04/24 02:49 Troponin T Baseline 910 ng/L (0-15) H* 06/01/24 15:08 Troponin T Hi Sens 6Hr 1155 ng/L (0-15) H 06/01/24 20:12 Troponin T Hi Sens 6Hr Delta 245 ng/L (0-12) H* 06/01/24 20:12 NT-Pro-B Natriuret Pep 6869 pg/mL (0-125) H 06/01/24 15:08 Total Protein 6.2 g/dL (6.6-8.7) L 06/04/24 02:49 Albumin 2.7 g/dL (3.5-5.2) L 06/04/24 02:49 Globulin 3.5 g/dL (1.3-4.6) 06/04/24 02:49 Lipase 7 U/L (13-60) L 06/01/24 15:08 Procalcitonin 1.17 ng/mL (0-0.5) H 06/01/24 20:12 Urine Color Dark yellow (Yellow) A 06/01/24 15:29 Urine Appearance Clear (CLEAR) 06/01/24 15: Urine pH 5.0 (5-7) 06/01/24 15: Ur Specific [place] 1.022 (1.005-1.030) 06/01/24 15: Urine Protein 1+ (Negative) A 06/01/24 15: Urine Glucose (UA) 1+ (Normal) H 06/01/24 15: Urine Ketones Trace (Negative) 06/01/24 15: Urine Blood Negative (Negative) 06/01/24 15: Urine Nitrate Negative (Negative) 06/01/24 15: Urine Bilirubin 1+ (Negative) H 06/01/24 15: Urine Urobilinogen 1.0 mg/dL (Negative) 06/01/24 15:29 Ur Leukocyte Esterase Negative (Negative) 06/01/24 15:29 Urine RBC 0-4 /hpf (0-2) H 06/01/24 15:29 Urine WBC 0-4 /hpf (0-5) H 06/01/24 15:29 Ur Squamous Epith Cells 0-4 /hpf (0-5) H 06/01/24 15: Amorphous Sediment Not Reportable 06/01/24 15:29 Urine Bacteria 1+ /hpf (NONE) H 06/01/24 15:29 Hyaline Casts 15-25 /lpf H 06/01/24 15:29 Urine Mucus 1+ /hpf 06/01/24 15:29 Influenza A (PCR) Negative (Negative) 06/01/24 15:45 Influenza Type B (PCR) Negative (Negative) 06/01/24 15:45 RSV (PCR) Negative (Negative) 06/01/24 15:45 SARS-CoV-2 (PCR) Negative (Negative) 06/01/24 15:45 Blood Type A Positive 06/01/24 23:00 Rho(D) Type Rh positive 06/01/24 23:00 Antibody Screen Negative 06/01/24 23:00 Crossmatch See Detail 06/01/24 23:00 Vitals Last Vital Signs Temp 97.9 F 06/05/24 07:50 Pulse 84 06/05/24 09:02 Resp 16 06/05/24 09:02 BP 131/92 06/05/24 07:50 Pulse Ox 96 06/05/24 09:02 O2 Del Method Room Air 06/05/24 07:50 O2 Flow Rate 2 06/05/24 02:57 Discharge Plan Discharge Patient Disposition: Xfer SNF Condition: Stable Prescriptions: New atorvastatin 40 mg Tablet 40 mg PO BEDTIME 30 Days Qty: 30 0RF amoxicillin-pot clavulanate 875-125 mg tablet 1 tab PO BID 5 Days Qty: 10 0RF Continued insulin glargine [Lantus U-100 Insulin] 100 unit/mL solution 15 unit SUBCUT DAILY clopidogrel 75 mg tablet 75 mg PO DAILY pantoprazole 40 mg tablet,delayed release (DR/EC) 40 mg PO BID insulin lispro [Humalog KwikPen Insulin] 100 unit/mL insulin pen See Rx Instructions .ROUTE .COMPLEX Rx Instructions: per sliding scale 70-149=0 150-199=2 200-249=4 250-299=6 300-349=8 350 + = 10 before meals & bedtime multivitamin Tablet 1 tab PO DAILY acetaminophen 325 mg Tablet 650 mg PO Q4H PRN (Reason: discomfort) aspirin 81 mg Tablet,Delayed Release (Dr/Ec) 81 mg PO DAILY magnesium hydroxide [Milk of Magnesia] 400 mg/5 mL Suspension 30 ml PO BID PRN (Reason: discomfort) bisacodyl 10 mg Suppository 10 mg [place] DAILY calcium carbonate [Tums] 200 mg calcium (500 mg) Tablet,Chewable 200 mg PO Q6H Acidophilus Capsule 1 cap PO BID ondansetron 4 mg Tablet,Disintegrating 4 mg PO Q8H PRN (Reason: Nausea And Vomiting) protein supplement Liquid 30 ea PO DAILY Rx Instructions: take 30 ml by mouth once daily for supplement menthol-zinc oxide [Moisture Barrier Ointment] 0.44-20.6 % Ointment 1 applic TOPICAL BID tamsulosin 0.4 mg Capsule 0.4 mg PO DAILY Qty: 30 0RF ketotifen fumarate [Allergy Eye (ketotifen)] 0.025 % (0.035 %) Drops 1 drp OPHTHALMIC (EYE) DAILY Rx Instructions: administer at least 8 hours apart polyvinyl alcohol [Artificial Tears Plus] 1.4 % Drops 2 drp OPHTHALMIC (EYE) Q6H guaifenesin 100 mg/5 mL Liquid 200 mg PO Q6H PRN (Reason: Cough) prednisolone acetate 1 % drops,suspension 1 drp ophthalmic (eye) BID brimonidine 0.2 % Drops 1 drp OPHTHALMIC (EYE) BID Rx Instructions: administer approximately 8 hours apart polyethylene glycol 3350 17 gram/dose Powder 4 g PO DAILY atropine 1 % Drops 1 drp OPHTHALMIC (EYE) BID loratadine [Claritin] 10 mg Tablet 10 mg PO Q12H alum-mag hydroxide-simeth 400-400-40 mg/5 mL Suspension 30 ml PO Q2H PRN (Reason: Constipation) bisacodyl 5 mg Tablet 20 mg PO DAILY Discharge Orders: Discharge Order (Routine); Ordered 06/05/24 Ordered By: Marily Palmer Referrals: [facility] [Outside] Discharge Diet: GI Soft Discharge Activity: Resume usual activity Patient Instructions: Amoxicillin (By mouth), Atorvastatin (By mouth) (Lipitor, Atorvaliq), Coronary Artery Disease (DC), Heart Catheterization (DC), GI Post Discharge Instructions w/ Anesthesia, Opioid Safety, Post Angiogram Home Care Instructions Discharge Attestations Time Spent in Discharge Care*: greater than 30 min Quality Metrics Clinical Quality Measures [ Acute Myocardial Infaction { Clinical Trial Participant: No; Contraindication to aspirin: None; Aspirin prescribed; Contraindication to statin: None; Statin prescribed; Contraindication to PCI: None; PCI performed;}] Coding Level of Care Code Acute Code for [facility] Diagnoses Type 2 diabetes mellitus with foot ulcer E11.621; L97.509 Pressure ulcer of right ankle, stage 2 L89.512 NSTEMI (non-ST elevated myocardial infarction) I21.4 Paroxysmal atrial fibrillation I48.0 Hematemesis K92.0 GIB (gastrointestinal bleeding) K92.2 Stercoral colitis K52.89 Constipation K59.00
[2024-06-05 11:44] LABS: Glucose Point of Care 242 mg/dL (70-110)
[2024-06-05] MEDS: sucralfate 1 gm Tablet PO (11:53)
[2024-06-05] MEDS: amlodipine 5 mg Tablet PO (11:53)
--- NOTE | 2024-06-05 12:29 | PC.SOCIAL ---
IMM Update pg 2 of IMM Updated and reviewed w/ patient. Copy provided and copy dated, initialed and placed in chart.
--- NOTE | 2024-06-05 14:22 | PC.NURSE ---
report phoned to karson desouza.
[2024-06-05 16:01] LABS: Glucose Point of Care 106 mg/dL (70-110)
--- NOTE | 2024-06-05 16:44 | PC.NURSE ---
karson desouza transport van here to transport pt back to facility.discharged at this time
== END 2024-06-05 16:46 | disposition skilled nursing facility (03) | DRG 282 ==
LOC: ER 15:04 → CSU 18:16
PROVIDERS: Internal Medicine; Student in an Organized Health Care Education/Training Program; Admitting Provider Internal Medicine; Emergency Provider Family Medicine; Visit Provider Student in an Organized Health Care Education/Training Program
PROC: 0DJ08ZZ Inspection of Upper Intestinal Tract, Via Natural or Artificial Opening Endoscopic (ICD-10-PCS; principal; 2024-06-02 11:15)
PROC: B211YZZ Fluoroscopy of Multiple Coronary Arteries using Other Contrast (ICD-10-PCS; principal; 2024-06-04 08:30)
DX: I21.4 Non-ST elevation (NSTEMI) myocardial infarction (principal); G30.9 Alzheimer's disease, unspecified; F02.80 Dementia in other diseases classified elsewhere, unspecified severity, without behavioral disturbance, psychotic disturbance, mood disturbance, and anxiety; I25.10 Atherosclerotic heart disease of native coronary artery without angina pectoris; I10 Essential (primary) hypertension; I48.0 Paroxysmal atrial fibrillation; N32.81 Overactive bladder; D64.9 Anemia, unspecified; Z66 Do not resuscitate; K52.89 Other specified noninfective gastroenteritis and colitis; K59.00 Constipation, unspecified; E11.621 Type 2 diabetes mellitus with foot ulcer; L89.622 Pressure ulcer of left heel, stage 2; L89.512 Pressure ulcer of right ankle, stage 2; Z89.432 Acquired absence of left foot; Z79.82 Long term (current) use of aspirin; Z79.4 Long term (current) use of insulin; Z79.899 Other long term (current) drug therapy; Z79.02 Long term (current) use of antithrombotics/antiplatelets; Z11.52 Encounter for screening for COVID-19
CPT/HCPCS: 36415; 36416; 43235; 71045; 71250; 74176; 76705; 80048; 80053; 81001; 82274; 82550; 82962; 83605; 83690; 83735; 83880; 84145; 84484; 85014; 85018; 85025; 85347; 85730; 86850; 86900; 86920; 87040; 87637; 93005; 93306; 93458; 94664; 96372; 96374; 96376; 99152; 99153; 99285; A9270; C1760; C1769; C1887; C1894; G0269; J1200; J1644; J1815; J2250; J2405; J2470; J2543; J2704; J3010; J3370; J3480; J3490; J7030; J7042; J9999; P9016; Q9967

== ENCOUNTER 2024-06-26 11:03 | Emergency (ER) | payer MEDICARE, MEDICAID, SELFPAY ==
[2024-06-26 11:10] VITALS: BP 112/70; PULSE 79; TEMP 36.2; O2SAT 99; BMI 24.3
--- NOTE | 2024-06-26 11:15 | W.ED.GIBLEED ---
HPI - GI Bleed General: Chief complaint: GI Bleed Stated complaint: Poss GI Bleed Time Seen by Provider: 06/26/24 11:03 Source: patient Mode of arrival: ambulatory Limitations: no limitations History of Present Illness: 73-year-old male [facility] he states that he had a dark bowel movement this morning was concerned it was bloody. Patient does have some dementia he denies any pain or fevers had a history of ulcers in the past. Denies any worse improved factors Associated symptoms: Denies abdominal pain, chills, fever(s), headache(s), nausea, rash or vomiting Related Data Home Medications ?Medication ?Instructions ?Recorded ?Confirmed Lactobacillus acidophilus 1 cap PO BID 01/29/24 06/01/24 (Acidophilus capsule) acetaminophen 325 mg tablet 650 mg PO Q4H PRN discomfort 01/29/24 06/01/24 aspirin 81 mg tablet,delayed 81 mg PO DAILY 01/29/24 06/01/24 release bisacodyl 10 mg rectal suppository 10 mg [place] DAILY 01/29/24 06/01/24 calcium carbonate (Tums) 200 mg PO Q6H 01/29/24 06/01/24 clopidogrel 75 mg tablet 75 mg PO DAILY 01/29/24 06/01/24 insulin glargine 100 unit/mL 15 unit SUBCUT DAILY 01/29/24 06/01/24 subcutaneous solution (Lantus U-100 Insulin) insulin lispro 100 unit/mL See Rx Instructions .Route .COMPLEX 01/29/24 06/01/24 subcutaneous pen (Humalog KwikPen (U-100) Insulin) magnesium hydroxide 400 mg/5 mL 30 ml PO BID PRN discomfort 01/29/24 06/01/24 oral suspension (Milk of Magnesia) menthol 0.44 %-zinc oxide 20.6 % 1 applic topical BID 01/29/24 06/01/24 topical ointment (Moisture Barrier Ointment) multivitamin 1 tab PO DAILY 01/29/24 06/01/24 ondansetron 4 mg disintegrating 4 mg PO Q8H PRN Nausea And Vomiting 01/29/24 06/01/24 tablet pantoprazole 40 mg tablet,delayed 40 mg PO BID 01/29/24 06/01/24 release protein supplement 30 ea PO DAILY 01/29/24 06/01/24 aluminum-mag hydroxide-simethicone 30 ml PO Q2H PRN Constipation 06/01/24 06/01/24 400 mg-400 mg-40 mg/5 mL oral susp atropine 1 % eye drops 1 drp ophthalmic (eye) BID 06/01/24 06/01/24 bisacodyl 5 mg tablet 20 mg PO DAILY 06/01/24 06/01/24 brimonidine 0.2 % eye drops 1 drp ophthalmic (eye) BID 06/01/24 06/01/24 guaifenesin 100 mg/5 mL oral liquid 200 mg PO Q6H PRN Cough 06/01/24 06/01/24 ketotifen fumarate 0.025 % (0.035 1 drp ophthalmic (eye) DAILY 06/01/24 06/01/24 %) eye drops (Allergy Eye (ketotifen)) loratadine 10 mg tablet (Claritin) 10 mg PO Q12H 06/01/24 06/01/24 polyethylene glycol 3350 17 4 g PO DAILY 06/01/24 06/01/24 gram/dose oral powder polyvinyl alcohol 1.4 % eye drops 2 drp ophthalmic (eye) Q6H 06/01/24 06/01/24 prednisolone acetate 1 % eye 1 drp ophthalmic (eye) BID 06/01/24 06/01/24 drops,suspension Previous Rx's ?Medication ?Instructions ?Recorded tamsulosin 0.4 mg capsule 0.4 mg PO DAILY #30 caps 02/01/24 atorvastatin 40 mg tablet 40 mg PO BEDTIME 30 days #30 tabs 06/05/24 Allergies Allergy/AdvReac Type Severity Reaction Status Date / Time No Known Allergies Allergy Verified 06/26/24 11:15 Review of Systems Const: Denies: fever(s), chills, body aches or change in appetite Eyes: Reports: blurry vision; Denies: eye discomfort ENMT: Denies: throat pain or dental pain Card: Denies: chest pain Resp: Denies: dyspnea GI: Reports: melena; Denies: abdominal pain, nausea, vomiting or diarrhea : Denies: dysuria Musc: Denies: neck pain or back pain Skin/Breast: Denies: rash Neuro: Denies: headache(s) PFSH ED PFSH: Medical History Pressure ulcer of right ankle, stage 2 Non-pressure chronic ulcer of other part of left foot with fat layer exposed Type 2 diabetes mellitus with foot ulcer Upper gastrointestinal hemorrhage Anemia Overactive bladder Hypertension Coronary artery disease Paroxysmal atrial fibrillation Esophageal bleeding Type 2 diabetes mellitus Alzheimer's dementia Surgical History S/P coronary angiogram History of transmetatarsal amputation of foot Family History Denies family history of Bleeding disorder Social History Smoking and tobacco/nicotine status: never used tobacco/nicotine Alcohol intake: never Substance/Drug Use: never Physical Exam Const: COMMON NORMALS: no acute distress, patient oriented x3 and healthy appearing HENMT: COMMON NORMALS: normocephalic and atraumatic HEAD & SCALP: normocephalic and atraumatic Neck/C-Spine: COMMON NORMALS: full ROM and supple Chest: COMMONS NORMALS: normal inspection of the chest Resp: COMMON NORMALS: normal respiratory effort Cardio: COMMON NORMALS: regular rate, regular rhythm and No murmurs present (Cardio) RATE: regular rate RHYTHM: regular rhythm GI: COMMON NORMALS: Normal to inspection, nondistended, normoactive bowel sounds present, Soft to palpation, non-tender and no masses PALPATION: Yes Soft to palpation OTHER: Rectal exam showed brown stool Hemoccult negative Extremity: COMMON NORMALS: normal to inspection and full ROM Neuro: COMMON NORMALS: patient oriented x3, moves all extremities and no focal motor deficits Psych: COMMON NORMALS: mental status grossly normal, Normal thought process present and cooperative THOUGHT PROCESS: Normal thought process present Skin: COMMON NORMALS: no rashes or lesions noted and no wounds GENERAL SKIN EXAM: no rashes or lesions noted Course Vital Signs: Vital signs: Vital Signs Temperature 97.1 F L 06/26/24 11:10 Pulse Rate 79 06/26/24 11:10 Blood Pressure 112/70 06/26/24 11:10 Pulse Oximetry 99 06/26/24 11:10 Oxygen Delivery Me thod Room Air 06/26/24 11:10 MDM - GI Bleed Medical Decision Making Patient presents here with concerns of blood in the stool nurse, here his rectal exam showed brown stools Hemoccult negative his electrolytes hemoglobin are normal no signs of a GI bleed here blood pressures been stable he stable for [facility] to [facility] Medical Records I reviewed the patient's medical records. Lab Data I reviewed the patient's lab results. 06/26/24 11:26 06/26/24 11:26 Laboratory Results WBC 9.96 10^3/uL (3.29-11.43) 06/26/24 11: RBC 4.24 10^6/uL (3.85-5.65) 06/26/24 11: Hgb 11.10 g/dL (11.27-16.99) L 06/26/24 11: Hct 37.0 % (37-53) 06/26/24 11: MCV 87.3 fl (82-101) 06/26/24 11: MCH 26.2 pg (27-33) L 06/26/24 11: MCHC 30.0 g/dL (30-55) 06/26/24 11: RDW 17.5 % (12.1-15.1) H 06/26/24 11: Plt Count 275 10^3/cmm (157-399) 06/26/24 11: MPV 11.4 fL (7.4-10.4) H 06/26/24 11: Neut % (Auto) 75.2 % 06/26/24 11: Lymph % (Auto) 16.2 % 06/26/24 11: [place] % (Auto) 6.3 % 06/26/24 11: Eos % (Auto) 1.5 % 06/26/24 11: Baso % (Auto) 0.5 % 06/26/24 11: Neut # (Auto) 7.49 10^3/uL (1.8-7.7) 06/26/24 11: Lymph # (Auto) 1.6 10^3/uL (0.8-4.8) 06/26/24 11: [place] # (Auto) 0.6 10^3/uL (0.2-0.9) 06/26/24 11: Eos # (Auto) 0.2 10^3/uL (0.0-0.8) 06/26/24 11:26 Baso # (Auto) 0.1 10^3/uL (0.0-0.1) 06/26/24 11: Nucleated RBC % (auto) 0 % 06/26/24 11: Nucleated RBCs # 0.0 /100WBC 06/26/24 11:26 PT 15.40 SECONDS (12.1-14.9) H 06/26/24 11:26 INR 1.14 (0.8-1.2) 06/26/24 11:26 Sodium 135 mmol/L (136-145) L 06/26/24 11:26 Potassium 3.8 mmol/L (3.5-5.1) 06/26/24 11: Chloride 106 mmol/L (98-107) 06/26/24 11: Carbon Dioxide 20 mmol/L (22-29) L 06/26/24 11:26 Anion Gap 12.8 (5-19) 06/26/24 11: BUN 10 mg/dL (8-23) 06/26/24 11:26 Creatinine 0.5 mg/dL (0.7-1.2) L 06/26/24 11:26 GFR Calculation Not Reportable 06/26/24 11: Glucose 164 mg/dL (65-115) H 06/26/24 11:26 Calculated Osmolality 283 mOsm/kg (285-295) L 06/26/24 11:26 Calcium 7.2 mg/dL (8.5-10.5) L 06/26/24 11:26 Total Bilirubin 0.4 mg/dL (0.15-1.2) 06/26/24 11:26 AST 14 U/L (0-40) 06/26/24 11: ALT 9 U/L (0-41) 06/26/24 11:26 Alkaline Phosphatase 87 U/L (40-130) 06/26/24 11:26 Total Protein 5.8 g/dL (6.6-8.7) L 06/26/24 11: Albumin 2.8 g/dL (3.5-5.2) L 06/26/24 11: Globulin 3.0 g/dL (1.3-4.6) 06/26/24 11:26 Lipase 7 U/L (13-60) L 06/26/24 11:26 No radiology studies performed this visit Discharge Plan Discharge Patient Disposition: Home Clinical Impression: Blood in stool Condition: Stable Prescriptions: No Action insulin glargine [Lantus U-100 Insulin] 100 unit/mL solution 15 unit SUBCUT DAILY clopidogrel 75 mg tablet 75 mg PO DAILY pantoprazole 40 mg tablet,delayed release (DR/EC) 40 mg PO BID insulin lispro [Humalog KwikPen Insulin] 100 unit/mL insulin pen See Rx Instructions .ROUTE .COMPLEX Rx Instructions: per sliding scale 70-149=0 150-199=2 200-249=4 250-299=6 300-349=8 350 + = 10 before meals & bedtime multivitamin Tablet 1 tab PO DAILY acetaminophen 325 mg Tablet 650 mg PO Q4H PRN (Reason: discomfort) aspirin 81 mg Tablet,Delayed Release (Dr/Ec) 81 mg PO DAILY magnesium hydroxide [Milk of Magnesia] 400 mg/5 mL Suspension 30 ml PO BID PRN (Reason: discomfort) bisacodyl 10 mg Suppository 10 mg [place] DAILY calcium carbonate [Tums] 200 mg calcium (500 mg) Tablet,Chewable 200 mg PO Q6H Acidophilus Capsule 1 cap PO BID ondansetron 4 mg Tablet,Disintegrating 4 mg PO Q8H PRN (Reason: Nausea And Vomiting) protein supplement Liquid 30 ea PO DAILY Rx Instructions: take 30 ml by mouth once daily for supplement menthol-zinc oxide [Moisture Barrier Ointment] 0.44-20.6 % Ointment 1 applic TOPICAL BID tamsulosin 0.4 mg Capsule 0.4 mg PO DAILY Qty: 30 0RF ketotifen fumarate [Allergy Eye (ketotifen)] 0.025 % (0.035 %) Drops 1 drp OPHTHALMIC (EYE) DAILY Rx Instructions: administer at least 8 hours apart polyvinyl alcohol 1.4 % Drops 2 drp OPHTHALMIC (EYE) Q6H guaifenesin 100 mg/5 mL Liquid 200 mg PO Q6H PRN (Reason: Cough) prednisolone acetate 1 % drops,suspension 1 drp ophthalmic (eye) BID brimonidine 0.2 % Drops 1 drp OPHTHALMIC (EYE) BID Rx Instructions: administer approximately 8 hours apart polyethylene glycol 3350 17 gram/dose Powder 4 g PO DAILY atropine 1 % Drops 1 drp OPHTHALMIC (EYE) BID loratadine [Claritin] 10 mg Tablet 10 mg PO Q12H alum-mag hydroxide-simeth 400-400-40 mg/5 mL Suspension 30 ml PO Q2H PRN (Reason: Constipation) bisacodyl 5 mg Tablet 20 mg PO DAILY atorvastatin 40 mg Tablet 40 mg PO BEDTIME 30 Days Qty: 30 0RF Discharge Orders: Discharge ED (Routine); Ordered 06/26/24 Ordered By: Jewell Lee Discharge Diet: Advance as tolerated Discharge Activity: Resume usual activity Patient Instructions: Viviana (ED) Print Language: Maori Coding Level of Care Code ED Registered Nurse Obstetrics for S[facility] Saldana
[2024-06-26 11:39] LABS: Basophils # 0.1 10^3/uL (0.0-0.1); Basophils % 0.5 %; Eosinophils # 0.2 10^3/uL (0.0-0.8); Eosinophils % 1.5 %; Lymphocytes # 1.6 10^3/uL (0.8-4.8); Lymphocytes % 16.2 %; Mean Corpuscular Hemoglobin 26.2 pg (27-33); Mean Corpuscular Volume 87.3 fl (82-101); Mean Platelet Volume 11.4 fL (7.4-10.4); Monocytes # 0.6 10^3/uL (0.2-0.9); Monocytes % 6.3 %; Neutrophils # 7.49 10^3/uL (1.8-7.7); Neutrophils % 75.2 %; Nucleated Red Blood Cells % 0 %; Platelet Count 275 10^3/cmm (157-399); Red Blood Count 4.24 10^6/uL (3.85-5.65); Red Cell Distribution Width 17.5 % (12.1-15.1); White Blood Count 9.96 10^3/uL (3.29-11.43)
[2024-06-26 11:47] LABS: INR 1.14 (0.8-1.2)
[2024-06-26 11:51] LABS: Alanine Aminotransferase 9 U/L (0-41); Albumin Level 2.8 g/dL (3.5-5.2); Alkaline Phosphatase 87 U/L (40-130); Blood Urea Nitrogen 10 mg/dL (8-23); Calcium 7.2 mg/dL (8.5-10.5); Carbon Dioxide 20 mmol/L (22-29); Chloride 106 mmol/L (98-107); Glucose 164 mg/dL (65-115); Lipase 7 U/L (13-60); Osmolality Calculated 283 mOsm/kg (285-295); Sodium 135 mmol/L (136-145); Total Bilirubin 0.4 mg/dL (0.15-1.2); Total Protein 5.8 g/dL (6.6-8.7)
[2024-06-26 11:53] LABS: Anion Gap 12.8 (5-19); Aspartate Amino Transferase 14 U/L (0-40); Potassium 3.8 mmol/L (3.5-5.1)
[2024-06-26 13:54] VITALS: BP 114/68; PULSE 91; O2SAT 94
== END 2024-06-26 14:11 | disposition home or self-care (01) ==
PROVIDERS: Emergency Provider Emergency Medicine
DX: K92.1 Melena (principal); Z79.4 Long term (current) use of insulin; Z79.02 Long term (current) use of antithrombotics/antiplatelets; Z79.82 Long term (current) use of aspirin; E11.9 Type 2 diabetes mellitus without complications; I25.10 Atherosclerotic heart disease of native coronary artery without angina pectoris; I10 Essential (primary) hypertension
CPT/HCPCS: 80053; 83690; 85025; 85610; 99283

== ENCOUNTER → 2024-07-11 15:43 | Outpatient (BNVA) | payer MEDICARE, MEDICAID, SELFPAY | PROVIDERS: Visit Provider Nurse Practitioner Family | DX: Z09 Encounter for follow-up examination after completed treatment for conditions other than malignant neoplasm (principal); I25.10 Atherosclerotic heart disease of native coronary artery without angina pectoris; E11.621 Type 2 diabetes mellitus with foot ulcer; Z79.4 Long term (current) use of insulin; F03.90 Unspecified dementia, unspecified severity, without behavioral disturbance, psychotic disturbance, mood disturbance, and anxiety; Z79.01 Long term (current) use of anticoagulants; Z79.82 Long term (current) use of aspirin; I10 Essential (primary) hypertension | CPT/HCPCS: 99214 ==

== ENCOUNTER → 2024-10-21 12:02 | Outpatient (BNVA) | payer MEDICARE, MEDICAID, SELFPAY | PROVIDERS: PCP Obstetrics & Gynecology Gynecology; Visit Provider Internal Medicine Cardiovascular Disease | DX: I25.10 Atherosclerotic heart disease of native coronary artery without angina pectoris (principal); E11.51 Type 2 diabetes mellitus with diabetic peripheral angiopathy without gangrene; E11.621 Type 2 diabetes mellitus with foot ulcer; L97.518 Non-pressure chronic ulcer of other part of right foot with other specified severity; Z79.4 Long term (current) use of insulin; I25.2 Old myocardial infarction; I10 Essential (primary) hypertension | CPT/HCPCS: 99214 ==

== ENCOUNTER 2024-10-31 14:22 | Outpatient (CLI) | payer MEDICARE, MEDICAID, SELFPAY ==
--- NOTE | 2024-10-31 14:45 | USR_ITS ---
PROCEDURE INFORMATION: Exam: US Duplex Bilateral Lower Extremity Arteries Exam date and time: 10/31/2024 2:59 PM Age: 73 years old Clinical indication: Other: Non healing ulcer bilat foot amputee; Prior surgery; Surgery date: 6+ months; Additional info: Non-healing ulcer TECHNIQUE: Imaging protocol: Real-time ultrasound scan of the arteries of the bilateral lower extremities with 2-D willis scale, color Doppler flow and spectral waveform analysis. Images documented and saved. COMPARISON: No relevant prior studies available. FINDINGS: Right common femoral artery: No occlusion or significant stenosis. Normal waveform. Right superficial femoral artery: No occlusion or significant stenosis. Normal waveform. Right popliteal artery: No occlusion or significant stenosis. Normal waveform. Right calf/foot arteries: Monophasic right posterior tibial artery waveform. The dorsal pedis artery is patent with a monophasic waveform. Images of the of the anterior tibial and peroneal arteries were not obtained. Right ankle-brachial index 0.8 (mild arterial insufficiency) Left common femoral artery: No occlusion or significant stenosis. Normal waveform. Left superficial femoral artery: No occlusion or significant stenosis. Normal waveform. Left popliteal artery: No occlusion or significant stenosis. Normal waveform. Left calf/foot arteries: Monophasic left posterior tibial artery waveform. The dorsal pedalis is patent. Images of the anterior tibial and peroneal arteries were not obtained. Left ankle-brachial index 1.3 (normal) US/CV arterial duplex [facility] [id number] IMPRESSION: 1. No occlusion of the major arteries in the bilateral lower extremities. 2. Monophasic waveforms in the bilateral posterior tibial arteries and dorsalis pedis arteries suggestive of underlying peripheral arterial disease. 3. Right ankle-brachial index of 0.8 suggesting mild arterial insufficiency.
== END 2024-10-31 14:23 | disposition home or self-care (01) ==
LOC: RAD 14:25
PROVIDERS: PCP Obstetrics & Gynecology Gynecology; Visit Provider Internal Medicine Cardiovascular Disease
DX: R94.39 Abnormal result of other cardiovascular function study (principal); M79.604 Pain in right leg; M79.605 Pain in left leg
CPT/HCPCS: 93925

== ENCOUNTER 2025-02-07 08:49 | Outpatient (CLI) | payer MEDICARE, MEDICAID, SELFPAY ==
--- NOTE | 2025-02-07 09:15 | CTR_ITS ---
PROCEDURE INFORMATION: Exam: CTA Abdominal Aorta and Bilateral Lower Extremities (Run-off) With Contrast Exam date and time: 02/07/2025 9:45 AM Age: 74 years old Clinical indication: Abnormal findings; Other: Abnormal carlota; Additional info: Pad, claudication, abnormal carlota TECHNIQUE: Imaging protocol: Computed tomographic angiography of the of the abdominal aorta, pelvis and bilateral lower extremities with contrast. 3D rendering (Not supervised by radiologist): MIP and/or 3D reconstructed images were created by the technologist. Radiation optimization: All CT scans at this facility use at least one of these dose optimization techniques: automated exposure control; mA and/or kV adjustment per patient size (includes targeted exams where dose is matched to clinical indication); or iterative reconstruction. Contrast material: OMNI 350; Contrast volume: 100 ml; Contrast route: INTRAVENOUS (IV); COMPARISON: US gall bladder [id number] 06/02/2024 2:49 PM RADIATION DOSE METRICS: Total DLP (mGy-cm): 1451.34 FINDINGS: Tubes, catheters and devices: Right anterior tibial and posterior tibial arteries are not well opacified which may reflect underlying occlusion, consider correlation with catheter based angiogram. Left posterior tibial, anterior tibial and distal peroneal arteries are not well opacified which may reflect underlying occlusion, consider correlation with catheter based angiogram. Aorta: No aortic aneurysm. No aortic dissection. 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 Renal arteries: No occlusion or significant stenosis. Right iliac arteries: Right internal iliac artery distal branches atherosclerotic disease with greater than 80-90% luminal narrowing. Right distal external iliac artery atherosclerotic disease with less than 25% luminal narrowing. Right femoral/popliteal arteries: Right superficial femoral artery scattered atherosclerotic disease with less than 25% luminal narrowing. Right popliteal artery focal atherosclerotic disease in the midportion with 60-70% luminal narrowing suspected. Right infrapopliteal arteries: Right peroneal trunk artery atherosclerotic disease with 80-90% luminal narrowing. Left iliac arteries: Left internal iliac artery distal branches atherosclerotic disease with greater than 90% luminal narrowing. Left femoral/popliteal arteries: Left superficial femoral artery scattered atherosclerotic disease with less than 25% luminal narrowing. Left infrapopliteal arteries: Left peroneal artery greater than 90% luminal narrowing with contrast seen distally. Lungs: Bibasilar atelectasis. Heart: Cardiomegaly. Coronary arteries: Coronary artery atherosclerotic calcification. Liver: Hepatic steatosis. Gallbladder is distended, ultrasound could further evaluate this. Suspected choledocholithiasis is seen, series 5, image 138. Diaphragm: Small to moderate hiatal hernia. Gallbladder and biliary ducts: See Liver finding. Pancreas: Unremarkable. No mass. No ductal dilation. Spleen: Normal. No splenomegaly. Adrenal glands: Normal. No mass. Kidneys and ureters: Normal. No mass. Stomach and bowel: Moderate to severe constipation. Large amount of stool in the rectal vault, please correlate for fecal impaction. Appendix: No evidence of appendicitis. Urinary bladder: Unremarkable. No mass. Reproductive: Unremarkable as visualized. Intraperitoneal space: Unremarkable. No free air. No significant fluid collection. Lymph nodes: No lymphadenopathy. Bones/joints: No acute fracture. No dislocation. Soft tissues: Small to moderate bilateral fat containing inguinal hernias. CT/CT angio abd aorta runof [id number] IMPRESSION: 1. 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 2. Right internal iliac artery distal branches atherosclerotic disease with greater than 80-90% luminal narrowing. 3. Right distal external iliac artery atherosclerotic disease with less than 25% luminal narrowing. 4. Right superficial femoral artery scattered atherosclerotic disease with less than 25% luminal narrowing. 5. Right popliteal artery focal atherosclerotic disease in the midportion with 60-70% luminal narrowing suspected. 6. Right peroneal trunk artery atherosclerotic disease with 80-90% luminal narrowing. 7. Right anterior tibial and posterior tibial arteries are not well opacified which may reflect underlying occlusion, consider correlation with catheter based angiogram. 8. Left internal iliac artery distal branches atherosclerotic disease with greater than 90% luminal narrowing. 9. Left superficial femoral artery scattered atherosclerotic disease with less than 25% luminal narrowing. 10. Left peroneal artery greater than 90% luminal narrowing with contrast seen distally. 11. Left posterior tibial, anterior tibial and distal peroneal arteries are not well opacified which may reflect underlying occlusion, consider correlation with catheter based angiogram. 12. Bibasilar atelectasis. 13. Cardiomegaly. 14. Coronary artery atherosclerotic calcification. 15. Small to moderate hiatal hernia. 16. Hepatic steatosis. 17. Moderate to severe constipation. 18. Large amount of stool in the rectal vault, please correlate for fecal impaction. 19. Small to moderate bilateral fat containing inguinal hernias. 20. Gallbladder is distended, ultrasound could further evaluate this. Suspected choledocholithiasis is seen, series 5, image 138.
[2025-02-07] MEDS: iohexol 350 mg/mL 500 mL Btl (per mL) IV (10:08)
[2025-02-07 13:15] LABS: Blood Urea Nitrogen 11 mg/dL (8-23)
== END 2025-02-07 08:50 | disposition home or self-care (01) ==
LOC: RAD 08:50
PROVIDERS: PCP Obstetrics & Gynecology Gynecology; Visit Provider Internal Medicine Cardiovascular Disease
DX: I70.201 Unspecified atherosclerosis of native arteries of extremities, right leg (principal); R68.89 Other general symptoms and signs; K55.1 Chronic vascular disorders of intestine; I70.8 Atherosclerosis of other arteries; J98.11 Atelectasis; I51.7 Cardiomegaly; K76.0 Fatty (change of) liver, not elsewhere classified; K82.8 Other specified diseases of gallbladder; K44.9 Diaphragmatic hernia without obstruction or gangrene; K59.09 Other constipation; K40.20 Bilateral inguinal hernia, without obstruction or gangrene, not specified as recurrent; R93.89 Abnormal findings on diagnostic imaging of other specified body structures; I25.10 Atherosclerotic heart disease of native coronary artery without angina pectoris; I70.202 Unspecified atherosclerosis of native arteries of extremities, left leg
CPT/HCPCS: 75635; 82565; 84520